=== PATIENT | female | born 1990 | race Caucasian/White ===

== ENCOUNTER 2016-06-20 20:10 | Emergency (ER) | payer MEDICAID ==
[~2016-06-20] VITALS: Ht 142.2 cm; Wt 68.0 kg
[~2016-06-20 20:10] MED LIST: BECL80AE9 HHN; FLUO-125 PO; LORA1TAB12 PO
[2016-06-20 20:59] VITALS: BP 139/76
[2016-06-20 21:17] LABS: Basophils # (auto) 0.1 uL; Basophils % (auto) 0.5 % (0.0-2.0); DEFINITIVE VIEW TRANSMISSION; Eosinophils # (auto) 0.7 uL; Eosinophils % (auto) 5.8 % (0.0-7.0); Hemoglobin 13.5 g/dL (12.2-16.2); Lymphocytes # (auto) 3.4 uL; Lymphocytes % (auto) 26.5 % (10.0-50.0); Mean Corpuscular Hemoglobin 29.8 pg (28.0-32.0); Mean Corpuscular Volume 90.4 fL (80.0-100.0); Mean Platelet Volume 7.7 fL (7.4-10.4); Monocytes # (auto) 0.5 uL; Monocytes % (auto) 3.8 % (0.0-12.0); Neutrophils # (auto) 8.2 uL; Neutrophils % (auto) 63.4 % (37.0-80.0); Platelet Count (auto) 452 10^3/uL (140-450); Red Cell Distribution Width 12.3 % (11.6-16.0); White Blood Cell 12.9 10^3/uL (4.4-10.8)
[2016-06-20 21:34] LABS: Albumin 3.6 g/dL (3.4-5.0); BUN/Creatinine Ratio 12.8; Calcium 8.5 mg/dL (8.5-10.1); Potassium 3.4 mmol/L (3.5-5.1)
[2016-06-20 21:36] LABS: B-Type Natriuretic Peptide 12.44 pg/mL (0-100)
[2016-06-20 21:37] LABS: INR 1.03 (0.9-1.15); Partial Thromboplastin Time 25.7 sec (22.64-33.71); Prothrombin Time 10.6 sec (9.37-12.3)
[2016-06-20 21:44] LABS: Bilirubin, Total 0.3 mg/dL (0.2-1.0); Total Protein 7.3 g/dL (6.4-8.2)
[2016-06-20] MEDS ORDERED: methylPREDNISolone SOD SUCC 125 MG/2 ML VL IV ONE (21:45)
== END 2016-06-20 22:16 | disposition home or self-care (01) ==
LOC: EDBD 20:10 → ER 20:37
DX: J45.901 Unspecified asthma with (acute) exacerbation (principal)
CPT/HCPCS: 36415; 71010; 80053; 83880; 84484; 85025; 85610; 85730; 93005; 96374; 99285; J2930

== ENCOUNTER 2016-07-08 07:51 | Emergency (ER) | payer MEDICAID ==
[~2016-07-08] VITALS: Ht 142.2 cm; Wt 68.0 kg
[2016-07-08 09:15] LABS: Basophils # (auto) 0 uL; Basophils % (auto) 0.1 % (0.0-2.0); Eosinophils # (auto) 0.1 uL; Eosinophils % (auto) 0.6 % (0.0-7.0); Hematocrit 41.1 % (36.0-46.0); Hemoglobin 13.6 g/dL (12.2-16.2); Lymphocytes # (auto) 1.7 uL; Lymphocytes % (auto) 18.6 % (10.0-50.0); Mean Corpuscular Volume 90.7 fL (80.0-100.0); Mean Platelet Volume 7.5 fL (7.4-10.4); Monocytes # (auto) 0.8 uL; Monocytes % (auto) 8.9 % (0.0-12.0); Neutrophils # (auto) 6.4 uL; Neutrophils % (auto) 71.8 % (37.0-80.0); Platelet Count (auto) 411 10^3/uL (140-450); Red Cell Distribution Width 12.6 % (11.6-16.0); White Blood Cell 8.9 10^3/uL (4.4-10.8)
[2016-07-08 09:21] LABS: Albumin 3.7 g/dL (3.4-5.0); BUN/Creatinine Ratio 17.4; Bilirubin, Total 0.4 mg/dL (0.2-1.0); Calcium 8.9 mg/dL (8.5-10.1); Magnesium 2.4 mg/dL (1.6-2.6); Potassium 3.4 mmol/L (3.5-5.1); Total Protein 7.5 g/dL (6.4-8.2)
[2016-07-08] MEDS ORDERED: ATOR10TA PO (09:53)
[2016-07-08] MEDS ORDERED: TIOTCAP INH (09:53)
[2016-07-08] MEDS ORDERED: TRAM50TA2 PO (09:53)
[2016-07-08] MEDS ORDERED: ALB2T PO (09:53)
[2016-07-08] MEDS ORDERED: MET25T PO (09:53)
[2016-07-08] MEDS ORDERED: AML5T PO (09:53)
[2016-07-08] MEDS ORDERED: HYDR-2650 PO (09:53)
[2016-07-08] MEDS ORDERED: TAM04C PO (09:53)
[2016-07-08] MEDS ORDERED: FURO20TA PO (09:53)
[2016-07-08] MEDS ORDERED: SODIUM CHLORIDE 0.9% 1,000 ML IV ONE (11:00)
[2016-07-08] MEDS ORDERED: methylPREDNISolone SOD SUCC 125 MG/2 ML VL IV ONE (11:00)
[2016-07-08] MEDS ORDERED: IPRATROPIUM BROM 0.5 MG/2.5ML INH SOL NEB ONE (11:00)
[2016-07-08] MEDS ORDERED: ALBUTEROL SULF 2.5 MG/0.5ML(0.5%) NEB SOLN NEB ONE (11:00)
[2016-07-08] MEDS ORDERED: LORazepam 2MG/ML-1ML VIAL IV ONE (11:45)
[2016-07-08] MEDS ORDERED: POTASSIUM CHL 20 Meq TABLET PO ONE (13:30)
[2016-07-08 13:58] VITALS: BP 121/76
[2016-07-09] MEDS ORDERED: FLU220IH INH (00:11)
[2016-07-09] MEDS ORDERED: ARIP2TAB PO (00:11)
[2016-07-09] MEDS ORDERED: ALPR1TAB2 PO (00:11)
[2016-07-09] MEDS ORDERED: TRAZ50TA2 PO (00:11)
== END 2016-07-08 14:47 | disposition home or self-care (01) ==
LOC: EDBD 07:51 → ER 08:03
DX: J45.901 Unspecified asthma with (acute) exacerbation (principal); E87.6 Hypokalemia; R73.9 Hyperglycemia, unspecified; E87.8 Other disorders of electrolyte and fluid balance, not elsewhere classified; F17.210 Nicotine dependence, cigarettes, uncomplicated; Z90.49 Acquired absence of other specified parts of digestive tract
CPT/HCPCS: 36415; 80053; 83735; 84484; 84702; 85025; 94640; 96361; 96374; 96375; 99284; J2060; J2930; J7030

== ENCOUNTER 2016-07-08 16:41 | Inpatient (IN) | payer MEDICAID ==
[~2016-07-08] VITALS: Ht 142.2 cm; Wt 73.6 kg
[~2016-07-08 16:41] MED LIST changes: +ALB2T PO; +AML5T PO; +ATOR10TA PO; +FURO20TA PO; +HYDR-2650 PO; +MET25T PO; +TAM04C PO; +TIOTCAP INH; +TRAM50TA2 PO
[2016-07-08] MEDS ORDERED: IPRATROPIUM BROM 0.5 MG/2.5ML INH SOL ONE (16:49)
[2016-07-08] MEDS ORDERED: ALBUTEROL SULF 2.5 MG/0.5ML(0.5%) NEB SOLN ONE (16:49)
[2016-07-08] MEDS ORDERED: SODIUM CHLORIDE 0.9% 1,000 ML IV ONE (17:00)
[2016-07-08] MEDS ORDERED: TERBUTALINE SULFATE 1 MG/ML 1ML VIAL SC ONE (17:00)
[2016-07-08] MEDS: MAGNESIUM SULFATE 1GM/100ML 100 ML IV SCH ×2 (17:25→18:07)
[2016-07-08] MEDS ORDERED: SODIUM CHLORIDE 0.9% 1,000 ML IV SCH (18:44)
[2016-07-08] MEDS ORDERED: ACETAMINOPHEN 500 MG TAB PO PRN (18:45)
[2016-07-08] MEDS ORDERED: PROMETHAZINE HCL 25 MG/ML 1ML IV PRN (18:45)
[2016-07-08] MEDS ORDERED: LORazepam 0.5 MG TAB PO PRN ×2 (18:45→21:00)
[2016-07-08] MEDS ORDERED: MORPHINE SULF INJ 2 MG/ML SYRINGE 1ML IV PRN ×2 (18:45)
[2016-07-08] MEDS ORDERED: LACTULOSE 20Gm/30ML SOLN PO PRN (18:45)
[2016-07-08] MEDS ORDERED: NITROGLYCERIN 0.4 MG SL TAB SL PRN (18:45)
[2016-07-08] MEDS ORDERED: OSELTAMIVIR 75 MG CAP PO ONE (18:45)
[2016-07-08] MEDS: DOXYCYCLINE HYC 100MG/250ML 250 ML IV SCH (18:45)
[2016-07-08] MEDS ORDERED: ALBUTEROL SULF 2.5 MG/0.5ML(0.5%) NEB SOLN NEB PRN (18:45)
[2016-07-08] MEDS: ENOXAPARIN SOD 40 MG/0.4 ML SYRINGE SC SCH (18:59)
[2016-07-08] MEDS ORDERED: methylPREDNISolone SOD SUCC 125 MG/2 ML VL IV ONE (19:00)
[2016-07-08] MEDS ORDERED: IOHEXOL 350 MG/ML 100ML IJ ONE (19:40)
[2016-07-08] MEDS: HYDROcodone-ACET 5/325MG TAB PO PRN (20:38)
[2016-07-08] MEDS: TEMAZEPAM 15 MG CAP PO PRN (20:39)
[2016-07-08] MEDS: BUDESONIDE (INHALATION) 0.5 MG/2 ML NEB NEB SCH (22:00)
[2016-07-08 22:03] VITALS: BP 106/48
[2016-07-08] MEDS: methylPREDNISolone SOD SUCC 40 MG/ML VL IV SCH (23:25)
[2016-07-09] VITALS (7 sets, daily range): BP systolic 96–128; BP diastolic 48–93
[2016-07-09] MEDS ORDERED: FLU220IH INH (00:11)
[2016-07-09] MEDS ORDERED: ALPR1TAB2 PO (00:11)
[2016-07-09] MEDS ORDERED: TRAZ50TA2 PO (00:11)
[2016-07-09] MEDS ORDERED: ARIP2TAB PO (00:11)
[2016-07-09] MEDS: BUDESONIDE (INHALATION) 0.5 MG/2 ML NEB NEB SCH ×2 (00:20→07:01)
[2016-07-09] MEDS: ALBUTEROL SULF 2.5 MG/0.5ML(0.5%) NEB SOLN NEB SCH ×4 (00:45→18:28)
[2016-07-09] MEDS: IPRATROPIUM BROM 0.5 MG/2.5ML INH SOL NEB SCH ×4 (00:45→18:27)
[2016-07-09] MEDS: DOXYCYCLINE HYC 100MG/250ML 250 ML IV SCH ×2 (05:52→18:19)
[2016-07-09] MEDS: HYDROcodone-ACET 5/325MG TAB PO PRN ×2 (05:52→14:50)
[2016-07-09] MEDS: methylPREDNISolone SOD SUCC 40 MG/ML VL IV SCH ×3 (05:52→18:18)
[2016-07-09] MEDS ORDERED: OSELTAMIVIR 75 MG CAP PO SCH (10:00)
[2016-07-09] MEDS: SODIUM CHLORIDE 0.9% 1,000 ML IV SCH ×2 (10:11→18:08)
[2016-07-09] MEDS: ENOXAPARIN SOD 40 MG/0.4 ML SYRINGE SC SCH (18:18)
[2016-07-09] MEDS: TEMAZEPAM 15 MG CAP PO PRN (21:39)
[2016-07-10] MEDS: methylPREDNISolone SOD SUCC 40 MG/ML VL IV SCH ×3 (00:07→12:16)
[2016-07-10] MEDS: ALBUTEROL SULF 2.5 MG/0.5ML(0.5%) NEB SOLN NEB SCH ×3 (00:20→12:50)
[2016-07-10] MEDS: IPRATROPIUM BROM 0.5 MG/2.5ML INH SOL NEB SCH ×3 (00:20→12:49)
[2016-07-10] MEDS: SODIUM CHLORIDE 0.9% 1,000 ML IV SCH ×2 (00:54→09:51)
[2016-07-10 05:00] VITALS: BP 108/53
[2016-07-10] MEDS: DOXYCYCLINE HYC 100MG/250ML 250 ML IV SCH (06:27)
[2016-07-10] MEDS: BUDESONIDE (INHALATION) 0.5 MG/2 ML NEB NEB SCH (06:58)
[2016-07-10 09:00] VITALS: BP 109/56
[2016-07-10] MEDS: HYDROcodone-ACET 5/325MG TAB PO PRN (09:08)
[2016-07-10 12:54] VITALS: BP 108/55
[2016-07-10 17:00] VITALS: BP 111/70
== END 2016-07-10 18:52 | disposition home or self-care (01) | DRG 133 ==
LOC: EDBD 16:41 → ER 16:44 → TELE 16:45 → TELE-CENTR 22:07
PROVIDERS: ADMIT Internal Medicine; ATTEND Internal Medicine
PROC: 5A09357 Assistance with Respiratory Ventilation, Less than 24 Consecutive Hours, Continuous Positive Airway Pressure (ICD-10-PCS; principal; 2016-07-08)
DX: J96.00 Acute respiratory failure, unspecified whether with hypoxia or hypercapnia (principal); J45.901 Unspecified asthma with (acute) exacerbation; E66.9 Obesity, unspecified; F17.210 Nicotine dependence, cigarettes, uncomplicated; Z83.3 Family history of diabetes mellitus; F41.9 Anxiety disorder, unspecified; Z68.36 Body mass index [BMI] 36.0-36.9, adult; Z90.49 Acquired absence of other specified parts of digestive tract; Z88.1 Allergy status to other antibiotic agents; Z88.8 Allergy status to other drugs, medicaments and biological substances
CPT/HCPCS: 36415; 36600; 71010; 71275; 81025; 82805; 82962; 85379; 87400; 93970; 94640; 94660; 96361; 96365; 96372; 96375; G0434; J3490

== ENCOUNTER 2016-11-21 17:51 | Emergency (ER) | payer MEDICAID ==
[~2016-11-21] VITALS: Ht 144.8 cm; Wt 77.1 kg
[~2016-11-21 17:51] MED LIST changes: +ALPR1TAB2 PO; -AML5T PO; +ARIP2TAB PO; -ATOR10TA PO; -BECL80AE9 HHN; +FLU220IH INH; -FLUO-125 PO; -FURO20TA PO; -HYDR-2650 PO; -MET25T PO; -TAM04C PO; -TIOTCAP INH; -TRAM50TA2 PO; +TRAZ50TA2 PO
[2016-11-21 18:12] VITALS: BP 122/70
[2016-11-21] MEDS ORDERED: methylPREDNISolone SOD SUCC 125 MG/2 ML VL IV ONE (18:45)
[2016-11-21] MEDS ORDERED: IPRATROPIUM BROM 0.5 MG/2.5ML INH SOL HHN ONE (18:45)
[2016-11-21] MEDS ORDERED: ALBUTEROL SULF 2.5 MG/0.5ML(0.5%) NEB SOLN HHN ONE (18:45)
[2016-11-21 19:20] LABS: Basophils # (auto) 0 uL; DEFINITIVE VIEW TRANSMISSION; Eosinophils # (auto) 0.8 uL; Eosinophils % (auto) 7.8 % (0.0-7.0); Hematocrit 38.8 % (36.0-46.0); Lymphocytes # (auto) 2.2 uL; Lymphocytes % (auto) 22.7 % (10.0-50.0); Mean Corpuscular Hgb Conc. 33.4 g/dL (32.0-36.0); Mean Corpuscular Volume 92.7 fL (80.0-100.0); Mean Platelet Volume 7.2 fL (7.4-10.4); Monocytes # (auto) 0.6 uL; Monocytes % (auto) 6.5 % (0.0-12.0); Neutrophils # (auto) 6.1 uL; Platelet Count (auto) 430 10^3/uL (140-450); White Blood Cell 9.7 10^3/uL (4.4-10.8)
[2016-11-21 19:43] LABS: Albumin 3.3 g/dL (3.4-5.0); BUN/Creatinine Ratio 15.4; Bilirubin, Total 0.3 mg/dL (0.2-1.0); Calcium 8.7 mg/dL (8.5-10.1); Potassium 4.2 mmol/L (3.5-5.1); Total Protein 6.6 g/dL (6.4-8.2)
== END 2016-11-21 20:04 | disposition home or self-care (01) ==
LOC: EDBD 17:51 → ER 17:51
DX: J45.901 Unspecified asthma with (acute) exacerbation (principal); J40 Bronchitis, not specified as acute or chronic; F17.210 Nicotine dependence, cigarettes, uncomplicated; Z90.49 Acquired absence of other specified parts of digestive tract; F12.10 Cannabis abuse, uncomplicated
CPT/HCPCS: 36415; 80053; 85025; 93005; 94644; 94761; 96374; 99285; J2930

== ENCOUNTER 2017-05-31 17:42 | Emergency (ER) | payer MEDICAID ==
[~2017-05-31] VITALS: Ht 144.8 cm; Wt 72.6 kg
[~2017-05-31 17:42] MED LIST changes: -ALB2T PO; -ALPR1TAB2 PO; +ALPR2TAB2 PO; +ARIP1TAB7 PO; -ARIP2TAB PO; +AZITTAB PO; +DEXT1SYP9 PO; +ESCI20TA PO; -LORA1TAB12 PO; +MONT4CHW9 PO; +PRE5T PO
[2017-05-31 18:45] LABS: Basophils # (auto) 0 uL; Basophils % (auto) 0.3 % (0.0-2.0); Eosinophils # (auto) 0.4 uL; Eosinophils % (auto) 3.6 % (0.0-7.0); Hematocrit 41.7 % (36.0-46.0); Hemoglobin 14.1 g/dL (12.2-16.2); Lymphocytes # (auto) 1.2 uL; Mean Corpuscular Hemoglobin 31.6 pg (28.0-32.0); Mean Corpuscular Hgb Conc. 33.8 g/dL (32.0-36.0); Mean Corpuscular Volume 93.4 fL (80.0-100.0); Mean Platelet Volume 7.3 fL (6.9-10.8); Monocytes # (auto) 0.5 uL; Monocytes % (auto) 4.1 % (0.0-12.0); Neutrophils # (auto) 9.7 uL; Platelet Count (auto) 367 10^3/uL (140-450); Red Cell Distribution Width 12.4 % (11.8-14.3); White Blood Cell 11.8 10^3/uL (4.4-10.8)
[2017-05-31 19:02] LABS: Albumin 3.9 g/dL (3.4-5.0); BUN/Creatinine Ratio 9.4; Calcium 9.1 mg/dL (8.5-10.1); Potassium 3.5 mmol/L (3.5-5.1); Total Protein 7.9 g/dL (6.4-8.2)
[2017-05-31] MEDS ORDERED: methylPREDNISolone SOD SUCC 125 MG/2 ML VL IV ONE (19:30)
[2017-05-31] MEDS ORDERED: SODIUM CHLORIDE 0.9% 1,000 ML IV ONE (19:30)
[2017-06-01 02:48] VITALS: BP 110/69
[2017-06-01] MEDS ORDERED: IPRATROPIUM BROM 0.5 MG/2.5ML INH SOL NEB ONE (03:15)
[2017-06-01] MEDS ORDERED: ALBUTEROL SULF 2.5 MG/0.5ML(0.5%) NEB SOLN NEB ONE (03:15)
== END 2017-06-01 03:32 | disposition home or self-care (01) ==
LOC: EDBD 17:42 → ER 17:52
DX: J45.901 Unspecified asthma with (acute) exacerbation (principal); F17.210 Nicotine dependence, cigarettes, uncomplicated; Z90.49 Acquired absence of other specified parts of digestive tract
CPT/HCPCS: 36415; 71020; 80053; 85025; 94640; 96361; 96374; 99285; J2930

== ENCOUNTER 2017-11-26 20:41 | Emergency (ER) | payer MEDICAID ==
[~2017-11-26] VITALS: Ht 152.4 cm; Wt 72.6 kg
[2017-11-26 22:12] VITALS: BP 125/89
[2017-11-26 22:32] LABS: Basophils # (auto) 0.1 uL; Basophils % (auto) 0.6 % (0.0-2.0); Eosinophils # (auto) 0.3 uL; Eosinophils % (auto) 3.3 % (0.0-7.0); Hematocrit 40.6 % (36.0-46.0); Hemoglobin 13.7 g/dL (12.2-16.2); Lymphocytes # (auto) 1.4 uL; Lymphocytes % (auto) 14.3 % (10.0-50.0); Mean Corpuscular Hemoglobin 31.5 pg (28.0-32.0); Mean Corpuscular Hgb Conc. 33.8 g/dL (32.0-36.0); Mean Corpuscular Volume 93.3 fL (80.0-100.0); Monocytes # (auto) 0.2 uL; Monocytes % (auto) 2.5 % (0.0-12.0); Neutrophils # (auto) 7.6 uL; Neutrophils % (auto) 79.3 % (37.0-80.0); Nucleated Red Blood Cells % 0.1 %; Platelet Count (auto) 377 10^3/uL (140-450); Red Blood Cells 4.35 10^6/uL (4.0-5.20); Red Cell Distribution Width 13.2 % (11.8-14.3); White Blood Cell 9.6 10^3/uL (4.4-10.8)
[2017-11-26 22:47] LABS: Albumin 3.8 g/dL (3.4-5.0); BUN/Creatinine Ratio 13.5; Calcium 8.7 mg/dL (8.5-10.1); Potassium 3.9 mmol/L (3.5-5.1)
[2017-11-26 22:50] LABS: Bilirubin, Total 0.3 mg/dL (0.2-1.0); Total Protein 7.2 g/dL (6.4-8.2)
== END 2017-11-26 22:40 | disposition left against medical advice (07) ==
LOC: ER 20:41 → EDBD 20:41 → ER 22:40
DX: R06.02 Shortness of breath (principal); Z53.21 Procedure and treatment not carried out due to patient leaving prior to being seen by health care provider
CPT/HCPCS: 36415; 71045; 80053; 85025

== ENCOUNTER 2018-09-23 16:09 | Emergency (ER) | payer MEDICAID ==
[~2018-09-23] VITALS: Ht 144.8 cm; Wt 63.5 kg
[2018-09-23 16:21] VITALS: BP 110/59
== END 2018-09-23 21:25 | disposition left against medical advice (07) ==
LOC: ER 16:10
DX: O26.891 Other specified pregnancy related conditions, first trimester (principal); R10.30 Lower abdominal pain, unspecified; Z3A.01 Less than 8 weeks gestation of pregnancy; Z53.21 Procedure and treatment not carried out due to patient leaving prior to being seen by health care provider
CPT/HCPCS: 36415; 76801; 84702

== ENCOUNTER 2018-10-28 19:29 | Emergency (ER) | payer MEDICAID ==
[~2018-10-28] VITALS: Ht 144.8 cm; Wt 62.6 kg
[~2018-10-28 19:29] MED LIST changes: +ALBUAER3 IN; +FOLI1TAB6 PO; +IPR002IS NEB; +PREN-96 PO
[2018-10-28 19:36] VITALS: BP 120/70
[2018-10-29] MEDS ORDERED: methylPREDNISolone SOD SUCC 125 MG/2 ML VL ONE (11:12)
[2018-10-29] MEDS ORDERED: ALBUTEROL SULF 2.5 MG/0.5ML(0.5%) NEB SOLN ONE (11:22)
== END 2018-10-28 20:15 | disposition left against medical advice (07) ==
LOC: ER 19:29
DX: O26.891 Other specified pregnancy related conditions, first trimester (principal); F41.9 Anxiety disorder, unspecified; Z3A.12 12 weeks gestation of pregnancy

== ENCOUNTER 2018-10-29 10:48 | Emergency (ER) | payer MEDICAID ==
[~2018-10-29] VITALS: Ht 144.8 cm; Wt 62.6 kg
[~2018-10-29 10:48] MED LIST changes: -ALPR2TAB2 PO; -ARIP1TAB7 PO; -AZITTAB PO; -DEXT1SYP9 PO; -ESCI20TA PO; -FLU220IH INH; -PRE5T PO; -TRAZ50TA2 PO
[2018-10-29] MEDS ORDERED: methylPREDNISolone SOD SUCC 125 MG/2 ML VL IV ONE (11:15)
[2018-10-29] MEDS ORDERED: ALBUTEROL SULF 2.5 MG/0.5ML(0.5%) NEB SOLN NEB ONE ×2 (11:15→14:15)
[2018-10-29 11:42] LABS: Basophils # (auto) 0 uL; Basophils % (auto) 0.2 % (0.0-2.0); Eosinophils # (auto) 0.7 uL; Eosinophils % (auto) 5.8 % (0.0-7.0); Hematocrit 38.5 % (36.0-46.0); Hemoglobin 13.3 g/dL (12.2-16.2); Lymphocytes # (auto) 3.5 uL; Lymphocytes % (auto) 27.7 % (10.0-50.0); Mean Corpuscular Hemoglobin 31.8 pg (28.0-32.0); Mean Corpuscular Hgb Conc. 34.6 g/dL (32.0-36.0); Mean Corpuscular Volume 92.1 fL (80.0-100.0); Monocytes # (auto) 0.4 uL; Monocytes % (auto) 3.4 % (0.0-12.0); Neutrophils % (auto) 62.9 % (37.0-80.0); Platelet Count (auto) 361 10^3/uL (140-450); Red Blood Cells 4.18 10^6/uL (4.0-5.20); White Blood Cell 12.7 10^3/uL (4.4-10.8)
[2018-10-29 11:48] LABS: Calcium 8.3 mg/dL (8.5-10.1); Potassium 3.7 mmol/L (3.5-5.1)
[2018-10-29 11:55] LABS: BUN/Creatinine Ratio 14.6; Bilirubin, Total 0.4 mg/dL (0.2-1.0); Total Protein 7.1 g/dL (6.4-8.2)
[2018-10-29 13:38] VITALS: BP 120/77
[2018-10-29] MEDS ORDERED: IPRATROPIUM BROM 0.5 MG/2.5ML INH SOL NEB ONE (14:15)
== END 2018-10-29 14:57 | disposition home or self-care (01) ==
LOC: EDBD 10:48 → ER 10:48
DX: O99.511 Diseases of the respiratory system complicating pregnancy, first trimester (principal); J45.901 Unspecified asthma with (acute) exacerbation; Z3A.12 12 weeks gestation of pregnancy
CPT/HCPCS: 36415; 80053; 85025; 94640; 94761; 96374; 99284; J2930; J7611; J7644

== ENCOUNTER 2019-04-29 21:30 | Emergency (ER) | payer MEDICAID ==
[~2019-04-29] VITALS: Ht 154.9 cm; Wt 63.5 kg
[2019-04-29] MEDS ORDERED: ALBUTEROL SULF 2.5 MG/0.5ML(0.5%) NEB SOLN HHN STA (22:02)
[2019-04-29] MEDS: MAGNESIUM SULFATE 1GM/100ML 100 ML IV SCH ×3 (22:05→23:05)
[2019-04-29] MEDS ORDERED: ALBUTEROL SULF 2.5 MG/0.5ML(0.5%) NEB SOLN NEB ONE (22:15)
[2019-04-29] MEDS ORDERED: IPRATROPIUM BROM 0.5 MG/2.5ML INH SOL NEB ONE ×2 (22:15)
[2019-04-29 22:22] LABS: Basophils # (auto) 0 uL; Eosinophils # (auto) 0.7 uL; Monocytes # (auto) 0.6 uL
[2019-04-29 22:25] LABS: Basophils % (auto) 0.3 % (0.0-2.0); Hematocrit 35.2 % (36.0-46.0); Hemoglobin 11.5 g/dL (12.2-16.2); Lymphocytes # (auto) 2.4 uL; Lymphocytes % (auto) 23.5 % (10.0-50.0); Mean Corpuscular Hemoglobin 30.6 pg (28.0-32.0); Mean Corpuscular Hgb Conc. 32.6 g/dL (32.0-36.0); Mean Corpuscular Volume 93.7 fL (80.0-100.0); Monocytes % (auto) 6.2 % (0.0-12.0); Neutrophils # (auto) 6.4 uL; Platelet Count (auto) 550 10^3/uL (140-450); Red Blood Cells 3.76 10^6/uL (4.0-5.20); Red Cell Distribution Width 13.2 % (11.8-14.3); White Blood Cell 10.2 10^3/uL (4.4-10.8)
[2019-04-29 22:39] LABS: Albumin 2.6 g/dL (3.4-5.0); Calcium 9.3 mg/dL (8.5-10.1); Potassium 4.2 mmol/L (3.5-5.1)
[2019-04-29 22:44] LABS: BUN/Creatinine Ratio 38.2; Bilirubin, Total 0.3 mg/dL (0.2-1.0)
[2019-04-30] VITALS: BP 147/60
[2019-04-30] MEDS ORDERED: methylPREDNISolone SOD SUCC 125 MG/2 ML VL IV ONE (07:30)
== END 2019-04-30 01:22 | disposition home or self-care (01) ==
LOC: EDBD 21:30 → ER 21:33
DX: J45.901 Unspecified asthma with (acute) exacerbation (principal); Z90.49 Acquired absence of other specified parts of digestive tract
CPT/HCPCS: 36415; 36600; 71045; 80053; 82805; 85025; 85610; 85730; 94644; 96365; 96366; 96375

== ENCOUNTER 2020-04-12 16:10 | Emergency (ER) | payer MEDICAID ==
[~2020-04-12] VITALS: Ht 144.8 cm; Wt 73.5 kg
[2020-04-12] MEDS ORDERED: SODIUM CHLORIDE 0.9% 500 ML IV ONE (16:30)
[2020-04-12] MEDS ORDERED: methylPREDNISolone SOD SUCC 125 MG/2 ML VL IV ONE (16:30)
[2020-04-12] MEDS ORDERED: SODIUM CHLORIDE 0.9% 1,000 ML IV ONE (16:30)
[2020-04-12] MEDS ORDERED: ALBUTEROL SULF 2.5 MG/0.5ML(0.5%) NEB SOLN NEB ONE (16:30)
[2020-04-12] MEDS ORDERED: IPRATROPIUM BROM 0.5 MG/2.5ML INH SOL NEB ONE (16:30)
[2020-04-12 16:53] LABS: Basophils # (auto) 0 10 ^3/uL (0-0.2); Basophils % (auto) 0.4 % (0.0-2.0); Eosinophils # (auto) 0.4 10 ^3/uL (0-0.8); Eosinophils % (auto) 4.4 % (0.0-7.0); Hematocrit 38.9 % (36.0-46.0); Lymphocytes % (auto) 37.1 % (10.0-50.0); Mean Corpuscular Hemoglobin 30.1 pg (28.0-32.0); Mean Corpuscular Hgb Conc. 33.5 g/dL (32.0-36.0); Mean Corpuscular Volume 89.8 fL (80.0-100.0); Monocytes # (auto) 0.4 10 ^3/uL (0-1.3); Monocytes % (auto) 5.5 % (0.0-12.0); Neutrophils # (auto) 4.2 10 ^3/uL (1.6-8.6); Neutrophils % (auto) 52.6 % (37.0-80.0); Platelet Count (auto) 365 10^3/uL (140-450); Red Blood Cells 4.33 10^6/uL (4.0-5.20); Red Cell Distribution Width 12.6 % (11.8-14.3)
[2020-04-12 17:18] LABS: BUN/Creatinine Ratio 12.6; Calcium 8.9 mg/dL (8.5-10.1); Magnesium 2.4 mg/dL (1.6-2.6); Potassium 3.6 mmol/L (3.5-5.1)
[2020-04-12 17:49] VITALS: BP 148/71
== END 2020-04-12 17:59 | disposition home or self-care (01) ==
LOC: EDBD 16:10 → ER 16:18
DX: J45.41 Moderate persistent asthma with (acute) exacerbation (principal)
CPT/HCPCS: 36415; 71046; 80048; 83735; 85025; 93005; 94640; 96361; 96374; 99285; J2930; J7644

== ENCOUNTER 2020-08-25 09:39 | Emergency (ER) | payer MEDICAID ==
[~2020-08-25] VITALS: Ht 152.4 cm; Wt 72.6 kg
[2020-08-25] MEDS ORDERED: ALBUTEROL SULF 2.5 MG/0.5ML(0.5%) NEB SOLN NEB ONE (10:00)
[2020-08-25 10:11] LABS: Basophils # (auto) 0 10 ^3/uL (0-0.2); Basophils % (auto) 0.4 % (0.0-2.0); Eosinophils # (auto) 0.3 10 ^3/uL (0-0.8); Eosinophils % (auto) 2.2 % (0.0-7.0); Hematocrit 41.9 % (36.0-46.0); Hemoglobin 14.1 g/dL (12.2-16.2); Lymphocytes # (auto) 2.1 10 ^3/uL (0.4-5.4); Lymphocytes % (auto) 17.3 % (10.0-50.0); Mean Corpuscular Hemoglobin 30.5 pg (28.0-32.0); Mean Corpuscular Hgb Conc. 33.6 g/dL (32.0-36.0); Mean Corpuscular Volume 90.8 fL (80.0-100.0); Monocytes # (auto) 0.5 10 ^3/uL (0-1.3); Monocytes % (auto) 3.9 % (0.0-12.0); Neutrophils # (auto) 9.2 10 ^3/uL (1.6-8.6); Neutrophils % (auto) 76.2 % (37.0-80.0); Red Blood Cells 4.62 10^6/uL (4.0-5.20); Red Cell Distribution Width 12.8 % (11.8-14.3); White Blood Cell 12.1 10^3/uL (4.4-10.8)
[2020-08-25 10:25] LABS: Albumin 3.8 g/dL (3.4-5.0); BUN/Creatinine Ratio 23.4; Calcium 8.2 mg/dL (8.5-10.1); Potassium 4.1 mmol/L (3.5-5.1)
[2020-08-25 10:29] LABS: Bilirubin, Total 0.4 mg/dL (0.2-1.0); Total Protein 7.5 g/dL (6.4-8.2)
[2020-08-25] MEDS ORDERED: HYDROcodone-ACET 10/325MG TAB ONE (11:33)
[2020-08-25] MEDS ORDERED: HYDROcodone-ACET 10/325MG TAB PO ONE (11:45)
[2020-08-25 12:06] LABS: Urine Bacteria FEW /hpf (None Seen); Urine Blood Negative /uL (Negative); Urine Specific Gravity 1.018 (1.001-1.035); Urine WBC <1 /hpf (0 - 5)
[2020-08-25 12:35] VITALS: BP 136/59
== END 2020-08-25 13:20 | disposition home or self-care (01) ==
LOC: ER 09:39 → EDBD 09:39 → ER 13:20
DX: J45.41 Moderate persistent asthma with (acute) exacerbation (principal); F41.9 Anxiety disorder, unspecified; Z90.49 Acquired absence of other specified parts of digestive tract; Z98.890 Other specified postprocedural states
CPT/HCPCS: 36415; 71045; 80053; 81001; 85025; 94644

== ENCOUNTER 2020-10-19 08:55 | Emergency (ER) | payer MEDICAID ==
[~2020-10-19] VITALS: Ht 154.9 cm; Wt 81.6 kg
[2020-10-19] MEDS ORDERED: methylPREDNISolone SOD SUCC 125 MG/2 ML VL IV ONE (09:15)
[2020-10-19 09:35] LABS: Basophils # (auto) 0 10 ^3/uL (0-0.2); Basophils % (auto) 0.3 % (0.0-2.0); Eosinophils # (auto) 0.5 10 ^3/uL (0-0.8); Eosinophils % (auto) 4.5 % (0.0-7.0); Hematocrit 43.5 % (36.0-46.0); Hemoglobin 14.5 g/dL (12.2-16.2); Lymphocytes # (auto) 3.1 10 ^3/uL (0.4-5.4); Lymphocytes % (auto) 27.5 % (10.0-50.0); Mean Corpuscular Hemoglobin 30.4 pg (28.0-32.0); Mean Corpuscular Hgb Conc. 33.4 g/dL (32.0-36.0); Mean Corpuscular Volume 91.3 fL (80.0-100.0); Monocytes # (auto) 0.6 10 ^3/uL (0-1.3); Monocytes % (auto) 5.2 % (0.0-12.0); Neutrophils % (auto) 62.5 % (37.0-80.0); Nucleated Red Blood Cells % 0.1 %; Red Blood Cells 4.76 10^6/uL (4.0-5.20); White Blood Cell 11.2 10^3/uL (4.4-10.8)
[2020-10-19 09:51] LABS: Albumin 3.8 g/dL (3.4-5.0); Calcium 8.9 mg/dL (8.5-10.1); Potassium 3.7 mmol/L (3.5-5.1)
[2020-10-19 09:55] LABS: BUN/Creatinine Ratio 14.5; Bilirubin, Total 0.9 mg/dL (0.2-1.0); Total Protein 7.4 g/dL (6.4-8.2)
[2020-10-19 11:26] LABS: Urine Bacteria FEW /hpf (None Seen); Urine Blood Negative /uL (Negative); Urine Mucus FEW (None Seen); Urine Specific Gravity 1.023 (1.001-1.035); Urine WBC 18 /hpf (0 - 5)
[2020-10-19 12:00] VITALS: BP 124/68
[2020-10-19] MEDS ORDERED: CEPHALEXIN 250 MG/5ml ORAL Susp 200ML BTL PO ONE (12:00)
== END 2020-10-19 17:59 | disposition home or self-care (01) ==
LOC: ER 08:55 → EDBD 08:55 → ER 17:59
DX: O99.511 Diseases of the respiratory system complicating pregnancy, first trimester (principal); J45.901 Unspecified asthma with (acute) exacerbation; R06.03 Acute respiratory distress; F41.9 Anxiety disorder, unspecified; Z90.49 Acquired absence of other specified parts of digestive tract; Z98.890 Other specified postprocedural states; Z3A.01 Less than 8 weeks gestation of pregnancy
CPT/HCPCS: 36415; 80053; 81001; 85025; 96374; 99283; J2930

== ENCOUNTER 2020-10-25 19:35 | Emergency (ER) | payer MEDICAID ==
[~2020-10-25] VITALS: Ht 149.9 cm; Wt 72.6 kg
[2020-10-25] MEDS ORDERED: IPRATROPIUM BROM 0.5 MG/2.5ML INH SOL NEB ONE (20:00)
[2020-10-25] MEDS ORDERED: ALBUTEROL SULF 2.5 MG/0.5ML(0.5%) NEB SOLN NEB ONE (20:00)
[2020-10-25] MEDS ORDERED: methylPREDNISolone SOD SUCC 125 MG/2 ML VL IV ONE ×2 (20:15→20:45)
[2020-10-25] MEDS ORDERED: ALBUTEROL SULF 2.5 MG/0.5ML(0.5%) NEB SOLN HHN ONE (20:45)
[2020-10-25] MEDS ORDERED: IPRATROPIUM BROM 0.5 MG/2.5ML INH SOL HHN ONE (20:45)
[2020-10-25 20:46] LABS: Basophils # (auto) 0 10 ^3/uL (0-0.2); Basophils % (auto) 0.2 % (0.0-2.0); Eosinophils # (auto) 0.7 10 ^3/uL (0-0.8); Eosinophils % (auto) 4.8 % (0.0-7.0); Hematocrit 39.2 % (36.0-46.0); Hemoglobin 13.5 g/dL (12.2-16.2); Lymphocytes # (auto) 3.8 10 ^3/uL (0.4-5.4); Lymphocytes % (auto) 27.9 % (10.0-50.0); Mean Corpuscular Hemoglobin 31.3 pg (28.0-32.0); Mean Corpuscular Hgb Conc. 34.5 g/dL (32.0-36.0); Mean Corpuscular Volume 90.8 fL (80.0-100.0); Monocytes # (auto) 0.4 10 ^3/uL (0-1.3); Monocytes % (auto) 3.2 % (0.0-12.0); Neutrophils # (auto) 8.8 10 ^3/uL (1.6-8.6); Neutrophils % (auto) 63.9 % (37.0-80.0); Nucleated Red Blood Cells % 0.1 %; Platelet Count (auto) 384 10^3/uL (140-450); Red Blood Cells 4.32 10^6/uL (4.0-5.20); White Blood Cell 13.8 10^3/uL (4.4-10.8)
[2020-10-25 21:38] LABS: Albumin 3.7 g/dL (3.4-5.0); Magnesium 2.3 mg/dL (1.6-2.6); Potassium 3.3 mmol/L (3.5-5.1)
[2020-10-25 21:42] LABS: BUN/Creatinine Ratio 19.4; Bilirubin, Total 0.4 mg/dL (0.2-1.0); Total Protein 7.5 g/dL (6.4-8.2)
[2020-10-25] MEDS ORDERED: MAGNESIUM SULFATE 1GM/100ML 100 ML IV SCH (22:00)
[2020-10-25 22:02] LABS: Urine Bacteria FEW /hpf (None Seen); Urine Blood Negative /uL (Negative); Urine Hyaline Cast FEW /lpf (0 - 2); Urine WBC 3 /hpf (0 - 5)
[2020-10-26 00:24] VITALS: BP 122/60
== END 2020-10-26 00:30 | disposition left against medical advice (07) ==
LOC: EDUNIT# 19:35 → ER 19:40
DX: O26.891 Other specified pregnancy related conditions, first trimester (principal); J45.901 Unspecified asthma with (acute) exacerbation; Z3A.01 Less than 8 weeks gestation of pregnancy
CPT/HCPCS: 36415; 76801; 80053; 81001; 83605; 83735; 84702; 85025; 87040; 94660; 96365; 96375; 99284; J2930; J3475; J7644

== ENCOUNTER 2020-11-03 11:38 | Emergency (ER) | payer MEDICAID ==
[~2020-11-03] VITALS: Ht 144.8 cm; Wt 72.6 kg
[2020-11-03] MEDS ORDERED: ALBUTEROL SULF 2.5 MG/0.5ML(0.5%) NEB SOLN NEB ONE (12:30)
[2020-11-03] MEDS ORDERED: methylPREDNISolone SOD SUCC 125 MG/2 ML VL IV ONE (12:30)
[2020-11-03] MEDS ORDERED: IPRATROPIUM BROM 0.5 MG/2.5ML INH SOL NEB ONE (12:30)
[2020-11-03 13:55] LABS: Basophils # (auto) 0 10 ^3/uL (0-0.2); Basophils % (auto) 0.1 % (0.0-2.0); Eosinophils # (auto) 0.2 10 ^3/uL (0-0.8); Eosinophils % (auto) 1.7 % (0.0-7.0); Hematocrit 37.4 % (36.0-46.0); Hemoglobin 13.1 g/dL (12.2-16.2); Lymphocytes # (auto) 1.6 10 ^3/uL (0.4-5.4); Lymphocytes % (auto) 12.2 % (10.0-50.0); Mean Corpuscular Hemoglobin 31.5 pg (28.0-32.0); Mean Corpuscular Hgb Conc. 35.1 g/dL (32.0-36.0); Mean Corpuscular Volume 89.9 fL (80.0-100.0); Monocytes # (auto) 0.5 10 ^3/uL (0-1.3); Monocytes % (auto) 4.1 % (0.0-12.0); Neutrophils # (auto) 10.8 10 ^3/uL (1.6-8.6); Neutrophils % (auto) 81.9 % (37.0-80.0); Platelet Count (auto) 381 10^3/uL (140-450); Red Blood Cells 4.16 10^6/uL (4.0-5.20); White Blood Cell 13.1 10^3/uL (4.4-10.8)
[2020-11-03 13:59] VITALS: BP 119/60
[2020-11-03 14:14] LABS: Albumin 4.3 g/dL (3.4-5.0); Calcium 8.4 mg/dL (8.5-10.1); Potassium 3.6 mmol/L (3.5-5.1)
[2020-11-03 14:18] LABS: BUN/Creatinine Ratio 12.3; Bilirubin, Total 0.3 mg/dL (0.2-1.0); Total Protein 6.9 g/dL (6.4-8.2)
== END 2020-11-03 15:10 | disposition home or self-care (01) ==
LOC: EDBD 11:38 → ER 11:38
DX: O99.511 Diseases of the respiratory system complicating pregnancy, first trimester (principal); J45.901 Unspecified asthma with (acute) exacerbation; O23.41 Unspecified infection of urinary tract in pregnancy, first trimester; Z90.49 Acquired absence of other specified parts of digestive tract; Z3A.00 Weeks of gestation of pregnancy not specified
CPT/HCPCS: 36415; 80053; 85025; 94640; 96374; 99283; J2930; J7644

== ENCOUNTER 2020-11-19 13:25 | Inpatient (IN) | payer MEDICAID ==
[~2020-11-19] VITALS: Ht 162.6 cm; Wt 73.9 kg
[2020-11-19] MEDS ORDERED: ALBUTEROL SULF 2.5 MG/0.5ML(0.5%) NEB SOLN HHN ONE (13:30)
[2020-11-19] MEDS ORDERED: IPRATROPIUM BROM 0.5 MG/2.5ML INH SOL HHN ONE (13:30)
[2020-11-19] MEDS ORDERED: methylPREDNISolone SOD SUCC 125 MG/2 ML VL IV ONE (13:30)
[2020-11-19 14:01] LABS: Basophils # (auto) 0 10 ^3/uL (0-0.2); Basophils % (auto) 0.2 % (0.0-2.0); Eosinophils # (auto) 0.4 10 ^3/uL (0-0.8); Eosinophils % (auto) 2.8 % (0.0-7.0); Hematocrit 36.2 % (36.0-46.0); Hemoglobin 12.7 g/dL (12.2-16.2); Lymphocytes # (auto) 3.2 10 ^3/uL (0.4-5.4); Lymphocytes % (auto) 24.6 % (10.0-50.0); Mean Corpuscular Hemoglobin 31.6 pg (28.0-32.0); Mean Corpuscular Volume 90.3 fL (80.0-100.0); Monocytes # (auto) 0.5 10 ^3/uL (0-1.3); Monocytes % (auto) 4.2 % (0.0-12.0); Neutrophils # (auto) 8.9 10 ^3/uL (1.6-8.6); Neutrophils % (auto) 68.2 % (37.0-80.0); Platelet Count (auto) 384 10^3/uL (140-450); Red Blood Cells 4.01 10^6/uL (4.0-5.20); Red Cell Distribution Width 12.8 % (11.8-14.3); White Blood Cell 13.1 10^3/uL (4.4-10.8)
[2020-11-19 14:19] LABS: Albumin 3.1 g/dL (3.4-5.0); Calcium 9.1 mg/dL (8.5-10.1); Potassium 3.3 mmol/L (3.5-5.1)
[2020-11-19 14:23] LABS: BUN/Creatinine Ratio 18.2; Bilirubin, Total 0.4 mg/dL (0.2-1.0); Total Protein 6.9 g/dL (6.4-8.2)
[2020-11-19] MEDS ORDERED: NITROGLYCERIN 0.4 MG SL TAB SL PRN (16:30)
[2020-11-19] MEDS ORDERED: ONDANSETRON HCL 4 MG/2 ML VIAL IV PRN (16:30)
[2020-11-19] MEDS ORDERED: ACETAMINOPHEN 325 MG TAB PO PRN (16:30)
[2020-11-19] MEDS ORDERED: MORPHINE SULF INJ 2 MG/ML SYRINGE 1ML IV PRN ×2 (16:30)
[2020-11-19 19:07] VITALS: BP 140/68
[2020-11-19 20:22] VITALS: BP 131/73
[2020-11-19 22:00] VITALS: BP 131/73
[2020-11-19] MEDS: methylPREDNISolone SOD SUCC 40 MG/ML VL IV SCH (22:00)
[2020-11-19] MEDS: ALBUTEROL SULF 2.5 MG/0.5ML(0.5%) NEB SOLN NEB PRN (23:12)
[2020-11-19] MEDS ORDERED: ALPR0.5T PO (23:37)
[2020-11-19] MEDS ORDERED: FLUT1INH6 IN (23:37)
[2020-11-20 05:00] VITALS: BP 115/61
[2020-11-20] MEDS: methylPREDNISolone SOD SUCC 40 MG/ML VL IV SCH ×2 (06:25→13:03)
[2020-11-20 06:27] LABS: Basophils # (auto) 0 10 ^3/uL (0-0.2); Basophils % (auto) 0.2 % (0.0-2.0); Eosinophils # (auto) 0 10 ^3/uL (0-0.8); Eosinophils % (auto) 0.1 % (0.0-7.0); Hematocrit 37.6 % (36.0-46.0); Hemoglobin 13.1 g/dL (12.2-16.2); Lymphocytes # (auto) 1.6 10 ^3/uL (0.4-5.4); Lymphocytes % (auto) 9.2 % (10.0-50.0); Mean Corpuscular Hemoglobin 31.1 pg (28.0-32.0); Mean Corpuscular Hgb Conc. 34.7 g/dL (32.0-36.0); Mean Corpuscular Volume 89.5 fL (80.0-100.0); Monocytes # (auto) 0.3 10 ^3/uL (0-1.3); Monocytes % (auto) 1.7 % (0.0-12.0); Neutrophils # (auto) 15.7 10 ^3/uL (1.6-8.6); Neutrophils % (auto) 88.8 % (37.0-80.0); Nucleated Red Blood Cells % 0.1 %; Platelet Count (auto) 417 10^3/uL (140-450); White Blood Cell 17.7 10^3/uL (4.4-10.8)
[2020-11-20 06:42] LABS: Calcium 8.8 mg/dL (8.5-10.1); Potassium 3.7 mmol/L (3.5-5.1)
[2020-11-20 06:48] LABS: Albumin 3.2 g/dL (3.4-5.0); Bilirubin, Total 0.6 mg/dL (0.2-1.0); Magnesium 2.3 mg/dL (1.6-2.6)
[2020-11-20 08:30] VITALS: BP 130/71
[2020-11-20] MEDS: ALBUTEROL SULF 2.5 MG/0.5ML(0.5%) NEB SOLN NEB PRN (08:34)
== END 2020-11-20 14:00 | disposition home or self-care (01) | DRG 566 ==
LOC: EDBD 13:25 → ER 13:25 → EDUNIT# 13:25 → TELE 16:27 → TELE-WESTW 20:20
PROVIDERS: ADMIT Internal Medicine; ATTEND Internal Medicine
DX: O99.511 Diseases of the respiratory system complicating pregnancy, first trimester (principal); J45.52 Severe persistent asthma with status asthmaticus; E87.6 Hypokalemia; Z20.822 Contact with and (suspected) exposure to COVID-19; J98.11 Atelectasis; Z3A.11 11 weeks gestation of pregnancy; F41.9 Anxiety disorder, unspecified; O99.281 Endocrine, nutritional and metabolic diseases complicating pregnancy, first trimester; O99.341 Other mental disorders complicating pregnancy, first trimester; Z80.3 Family history of malignant neoplasm of breast; Z82.49 Family history of ischemic heart disease and other diseases of the circulatory system; Z83.3 Family history of diabetes mellitus; Z87.891 Personal history of nicotine dependence; Z90.49 Acquired absence of other specified parts of digestive tract; Z88.1 Allergy status to other antibiotic agents; Z88.8 Allergy status to other drugs, medicaments and biological substances
CPT/HCPCS: 36415; 76801; 80053; 83735; 84702; 85025; 87426; 93005; 94640; 94644; 94660; 96374; 99291; G0378

== ENCOUNTER 2020-12-01 19:41 | Emergency (ER) | payer MEDICAID ==
[~2020-12-01] VITALS: Ht 152.4 cm; Wt 74.8 kg
[~2020-12-01 19:41] MED LIST changes: +ALPR0.5T PO; +FLUT1INH6 IN
[2020-12-01 19:51] VITALS: BP 119/70
[2020-12-01] MEDS ORDERED: ALBUTEROL SULF 2.5 MG/0.5ML(0.5%) NEB SOLN HHN ONE (20:15)
[2020-12-01] MEDS ORDERED: methylPREDNISolone SOD SUCC 125 MG/2 ML VL IV ONE (20:15)
[2020-12-01] MEDS ORDERED: IPRATROPIUM BROM 0.5 MG/2.5ML INH SOL HHN ONE (20:15)
[2020-12-01 20:32] LABS: Basophils # (auto) 0 10 ^3/uL (0-0.2); Basophils % (auto) 0.1 % (0.0-2.0); Eosinophils # (auto) 0.3 10 ^3/uL (0-0.8); Eosinophils % (auto) 2.1 % (0.0-7.0); Hematocrit 37.1 % (36.0-46.0); Hemoglobin 12.8 g/dL (12.2-16.2); Lymphocytes # (auto) 3.7 10 ^3/uL (0.4-5.4); Lymphocytes % (auto) 23.6 % (10.0-50.0); Mean Corpuscular Hemoglobin 31.3 pg (28.0-32.0); Mean Corpuscular Hgb Conc. 34.5 g/dL (32.0-36.0); Mean Corpuscular Volume 90.7 fL (80.0-100.0); Monocytes # (auto) 0.6 10 ^3/uL (0-1.3); Monocytes % (auto) 3.6 % (0.0-12.0); Neutrophils # (auto) 11.1 10 ^3/uL (1.6-8.6); Neutrophils % (auto) 70.6 % (37.0-80.0); Platelet Count (auto) 408 10^3/uL (140-450); Red Blood Cells 4.09 10^6/uL (4.0-5.20); Red Cell Distribution Width 13.3 % (11.8-14.3); White Blood Cell 15.7 10^3/uL (4.4-10.8)
[2020-12-01 20:43] LABS: Anion Gap 8 (5-15); Blood Urea Nitrogen 16 mg/dL (7-18); Calcium 8.8 mg/dL (8.5-10.1); Carbon Dioxide 23 mmol/L (21-32); Chloride 106 mmol/L (98-107); Potassium 3.3 mmol/L (3.5-5.1); Sodium 137 mmol/L (136-145)
[2020-12-01 20:46] LABS: BUN/Creatinine Ratio 29.1; GFR African American 167 mL/min; GFR Non-African American 138 mL/min; Glucose 122 mg/dL (74-106)
== END 2020-12-01 21:05 | disposition left against medical advice (07) ==
LOC: EDBD 19:41 → ER 19:43
DX: O99.511 Diseases of the respiratory system complicating pregnancy, first trimester (principal); J45.901 Unspecified asthma with (acute) exacerbation; Z3A.12 12 weeks gestation of pregnancy
CPT/HCPCS: 36415; 80048; 84484; 85025; 93005

== ENCOUNTER 2021-01-02 08:19 | Emergency (ER) | payer MEDICAID ==
[~2021-01-02] VITALS: Ht 144.8 cm; Wt 76.2 kg
[2021-01-02] MEDS ORDERED: SODIUM CHLORIDE 0.9% 1,000 ML IV ONE (09:00)
[2021-01-02] MEDS ORDERED: IPRATROPIUM BROM 0.5 MG/2.5ML INH SOL NEB ONE (09:00)
[2021-01-02] MEDS ORDERED: methylPREDNISolone SOD SUCC 125 MG/2 ML VL IM ONE (09:00)
[2021-01-02] MEDS ORDERED: ALBUTEROL SULF 2.5 MG/0.5ML(0.5%) NEB SOLN NEB ONE (09:00)
[2021-01-02 09:05] VITALS: BP 121/83
== END 2021-01-02 10:22 | disposition home or self-care (01) ==
LOC: ER 08:19
DX: J45.901 Unspecified asthma with (acute) exacerbation (principal); Z90.49 Acquired absence of other specified parts of digestive tract
CPT/HCPCS: 81002; 94640; 96372; 99283; J2930; J7644

== ENCOUNTER 2021-10-28 22:21 | Emergency (ER) | payer MEDICAID ==
[~2021-10-28] VITALS: Ht 167.6 cm; Wt 62.9 kg
[2021-10-28 22:45] VITALS: BP 115/48
[2021-10-28 23:36] LABS: Basophils # (auto) 0.1 10 ^3/uL (0-0.2); Basophils % (auto) 0.8 % (0.0-2.0); Eosinophils # (auto) 0 10 ^3/uL (0-0.8); Eosinophils % (auto) 0.1 % (0.0-7.0); Hematocrit 40.3 % (36.0-46.0); Hemoglobin 13.9 g/dL (12.2-16.2); Lymphocytes # (auto) 0.7 10 ^3/uL (0.4-5.4); Lymphocytes % (auto) 9.2 % (10.0-50.0); Mean Corpuscular Hemoglobin 31.8 pg (28.0-32.0); Mean Corpuscular Hgb Conc. 34.6 g/dL (32.0-36.0); Mean Corpuscular Volume 91.8 fL (80.0-100.0); Monocytes # (auto) 0.1 10 ^3/uL (0-1.3); Monocytes % (auto) 1.7 % (0.0-12.0); Neutrophils # (auto) 6.9 10 ^3/uL (1.6-8.6); Neutrophils % (auto) 88.2 % (37.0-80.0); Red Blood Cells 4.39 10^6/uL (4.0-5.20); Red Cell Distribution Width 13.1 % (11.8-14.3); White Blood Cell 7.9 10^3/uL (4.4-10.8)
[2021-10-28 23:56] LABS: Albumin 3.9 g/dL (3.4-5.0); Calcium 9.3 mg/dL (8.5-10.1); Potassium 4.2 mmol/L (3.5-5.1)
[2021-10-29 00:01] LABS: Bilirubin, Total 0.5 mg/dL (0.2-1.0); Total Protein 7.5 g/dL (6.4-8.2)
[2021-10-29] MEDS ORDERED: methylPREDNISolone SOD SUCC 125 MG/2 ML VL IV ONE (00:55)
== END 2021-10-29 01:00 | disposition left against medical advice (07) ==
LOC: EDBD 22:21 → ER 22:24
DX: J45.901 Unspecified asthma with (acute) exacerbation (principal)
CPT/HCPCS: 36415; 71045; 80053; 83880; 84484; 84702; 85025; 93005; 96374; 99285; J2930

== ENCOUNTER 2024-06-06 06:31 | Inpatient (IN) | payer MEDICAID ==
[2024-06-06] VITALS (9 sets, daily range): BP systolic 113–158; BP diastolic 77–92; PULSE 105–138; RESP 16–26; TEMP 98.4–98.5; O2SAT 95–99
[~2024-06-06] VITALS: Ht 144.8 cm; Wt 80.7 kg
[~2024-06-06 06:31] MED LIST changes: +FOLI-119 PO; -FOLI1TAB6 PO; +MONT4CHW74 PO; -MONT4CHW9 PO
--- NOTE | 2024-06-06 07:01 | ED.PDOC ---
SOB-HPI HPI Comments 33 y.o female with PMHx of Asthma, presents to the ED via EMS for a chief complaint of SOB associated with a productive cough that started this morning around 0300. Patient reports using inhaler at home but had no relief. EMS reports patient's SPO2 on room air was 91%, was placed on a breathing treatment increasing saturation to 97%. Patient denies any chest pain, fever, chills. Chief Complaint: Asthma Time Seen by MD: 06:40 Primary Care Provider: KOFFIK Reviewed notes: Nurses Notes, Wellness Program Manager Notes, Medications, Allergies Information Source: Patient, Emergency Med Personnel Mode of Arrival: EMS Severity: Moderate Timing: Hours Duration: Since onset Context: At Rest PE Risk Factors: None History of: Asthma Prehospital treatment: Breathing Tx Modifying Factors: Nothing Associated Signs and Symptoms: Cough If cough with SOB: Productive Past Medical History PAST MEDICAL HISTORY: Anxiety, Asthma Surgical History: Cholecystectomy, SHRUB GROWER History: No Pertinent SHRUB GROWER History Family History Family History: Family hx of DM, Family hx of heart luz maria, Family hx of HTN Social History Smoker: Non-Smoker Alcohol: Denies ETOH Use Drugs: Denies Drug Use Lives In: Home Constitutional: denies: chills, diaphoresis, fatigue, fever, malaise, sweats, weakness, others EENTM: denies: blurred vision, double vision, ear bleeding, ear discharge, ear drainage, ear pain, ear ringing, eye pain, eye redness, hearing loss, mouth pain, mouth swelling, nasal discharge, nose bleeding, nose congestion, nose pain, photophobia, tearing, throat pain, throat swelling, voice changes, others Respiratory: reports: cough, SOB at rest, shortness of breath, SOB with excertion; denies: hemoptysis, orthopnea, stridor, wheezing, others Cardiovascular: denies: chest pain, dizzy spells, diaphoresis, Dyspnea on exertion, edema, irregular heart beat, left arm pain, lightheadedness, palpitations, PND, syncope, others Gastrointestinal: denies: abdomen distended, abdominal pain, blood streaked bowels, constipated, diarrhea, dysphagia, difficulty swallowing, hematemesis, melena, nausea, poor appetite, poor fluid intake, rectal bleeding, rectal pain, vomiting, others Genitourinary: denies: abnormal vagina bleeding, burning, dyspareunia, dysuria, flank pain, frequency, hematuria, incontinence, pain, , vagina discharge, urgency, others Neurological: denies: dizziness, fainting, headache, left sided numbness, left sided weakness, numbness, paresthesia, pre-existing deficit, right sided numbness, right sided weakness, seizure, speech problems, tingling, tremors, weakness, others Musculoskeletal: denies: back pain, gout, joint pain, joint swelling, muscle pain, muscle stiffness, neck pain, others Integumetry: denies: bruises, change in color, change in hair/nails, dryness, laceration, lesions, lumps, rash, wounds, others Allergic/Immunocompromised: denies: Difficulty Healing, Frequent Infections, Hives, Itching, others Hematologic/Lymphatic: denies: anemia, blood clots, easy bleeding, easy bruising, swollen glands, others Endocrine: denies: excessive hunger, excessive sweating, excessive thirst, excessive urination, flushing, intolerance to cold, intolerance to heat, unexplained weight gain, unexplained weight loss, others Psychiatric: denies: anxiety, bipolar disorder, depression, hopeless, panic disorder, schizophrenia, sleepless, suicidal, others All Other Systems: Reviewed and Negative Physical Exam General Appearance: No Apparent Distress, Normal HEENT: Normal ENT Inspection, Pharynx Normal, TMs Normal Neck: Full Range of Motion, Non-Tender, Normal, Normal Inspection Respiratory: Respiratory Distress Cardiovascular: No Edema, No JVD, No Murmur, No Gallop, Normal Peripheral Pulses, Regular Rate/Rhythm Breast Exam: Deferred Gastrointestinal: No Organomegaly, Non Tender, No Pulsatile Mass, Normal Bowel Sounds, Soft Genitalia: Deferred Pelvic: Deferred Rectal: Deferred Extremities: No calf tenderness, Normal capillary refill, Normal inspection, Normal range of motion, Non-tender, No pedal edema Musculoskeletal : Apperance: Normal Neurologic: Alert, financial sales advisor II-XII nml as Tested, No Motor Deficits, Normal Affect, Normal Mood, No Sensory Deficits Cerebellar Function: Normal Reflexes: Normal Skin: Dry, Normal Color, Warm Lymphatic: No Adenopathy Was a procedure done? Was a procedure done?: No Differential Dx Differential Diagnosis: Asthma, Bronchitis, Pneumonia, Respiratory Distress, URI X-Ray, Labs, Meds, VS Vital Signs Date Time Temp Pulse Resp B/P (MAP) Pulse Ox O2 Delivery O2 Flow Rate FiO2 06/06/24 08:48 12 92 Nasal Cannula* 1 24 06/06/24 07:45 98.4 111 19 126/54 (78) 95 98.4 06/06/24 07:45 111 19 95 Room Air* 0 21 06/06/24 06:52 119 21 99 Simple Mask* 8 60 06/06/24 06:42 99.0 136 22 151/76 (101) 96 Lab Test 06/06/24 06:58 Range/Units White Blood Count 13.4 H 4.4-10.8 10^3/uL Red Blood Count 3.77 L 4.0-5.20 10^6/uL Hemoglobin 11.8 L 12.2-16.2 g/dL Hematocrit 35.7 L 36.0-46.0 % Mean Corpuscular Volume 94.6 80.0-100.0 fL Mean Corpuscular Hemoglobin 31.4 28.0-32.0 pg Mean Corpuscular Hemoglobin Concent 33.1 32.0-36.0 g/dL Red Cell Distribution Width 13.1 11.8-14.3 % Platelet Count 421 140-450 10^3/uL Mean Platelet Volume 6.3 L 6.9-10.8 fL Neutrophils (%) (Auto) 85.7 H 37.0-80.0 % Lymphocytes (%) (Auto) 9.7 L 10.0-50.0 % Monocytes (%) (Auto) 2.5 0.0-12.0 % Eosinophils (%) (Auto) 1.9 0.0-7.0 % Basophils (%) (Auto) 0.2 0.0-2.0 % Neutrophils # (Auto) 11.5 H 1.6-8.6 10 ^3/uL Lymphocytes # (Auto) 1.3 0.4-5.4 10 ^3/uL Monocytes # (Auto) 0.3 0-1.3 10 ^3/uL Eosinophils # (Auto) 0.3 0-0.8 10 ^3/uL Basophils # (Auto) 0 0-0.2 10 ^3/uL Nucleated Red Blood Cells 0.0 % Sodium Level 140 136-145 mmol/L Potassium Level 3.3 L 3.5-5.1 mmol/L Chloride Level 108 H 98-107 mmol/L Carbon Dioxide Level 23 20-31 mmol/L Anion Gap 9 5-15 Blood Urea Nitrogen 16 9-23 mg/dL Creatinine 0.62 0.550-1.02 mg/dL Glomerular Filtration Rate Calc 121 >90 mL/min BUN/Creatinine Ratio 25.8 H 10.0-20.0 Serum Glucose 181 H 74-106 mg/dL Lactic Acid Level 1.6 0.4-2.0 mmol/L Calcium Level 9.4 8.7-10.4 mg/dL Total Bilirubin 0.4 0.2-1.0 mg/dL Aspartate Amino Transferase (AST) 20 13-40 U/L Alanine Aminotransferase (ALT) 115 H 7-40 U/L Alkaline Phosphatase 216 H 46-116 U/L Total Protein 6.0 5.7-8.2 g/dL Albumin 3.7 3.2-4.8 g/dL Current Medications Medications (Trade) Dose Ordered Sig/Catarino Route Start Time Stop Time Status Last Admin Prednisone 60 mg ONCE ONCE PO 06/06/24 06:45 06/06/24 06:50 DC 06/06/24 07:08 Albuterol (Ventolin Medneb) 5 mg ONCE ONCE NEB 06/06/24 06:45 06/06/24 06:50 DC 06/06/24 08:48 Ipratropium [place] (Atrovent Medneb) 0.5 mg ONCE ONCE NEB 06/06/24 06:45 06/06/24 06:50 DC 06/06/24 08:48 Time of 1ST Reevaluation: 06:56 Reevaluation 1ST: Unchanged Patient Education/Counseling: Diagnosis, Treatment, Prognosis Family Education/Counseling: No Family Present Additional Information I reviewed the following notes from patient's past medical encounters: LAB, PHA, RT, CXR The following tests were ordered, and results were reviewed by me: LAB, CXR Additional Information was gathered from interviewing the following independent historians: EMS I reviewed and agreed with the following test results read by other providers: CXR I discussed treatment and results with medical personnel and patient [address] [address] Ph: [phone] DIAGNOSTIC IMAGING Diagnostic Imaging Report : [id number] Signed PATIENT: ALEX MUHAMMAD ACCT: [id number] UNIT: [id number] : 1990 LOC: ER ROOM / BED: / AGE / SEX: 33 / F ADM STATUS: REG ER SERVICE ORDERING PHYSICIAN: CORINA ASHTON MD PROCEDURE(s): CXR1 - CHEST XRAY 1 VIEW REASON: SOB ORDER NUMBER(s): [id number], ACCESSION NUMBER(s): [id number] CHEST RADIOGRAPH Indication: SOB Technique: Single frontal view of the chest was obtained Comparison: CXRP on DOS: 10/29/21 FINDINGS: Lines and Tubes: None Lungs: No focal consolidation. Pleura: No effusion. No pneumothorax. Cardiomediastinal contours: Unremarkable Bones: No acute osseous abnormality. IMPRESSION: 1. No acute cardiopulmonary disease. ATED BY: PAPO GEORGE MD DICTATED DATE/TIME: 06/06/24717 SIGNED BY: PAPO GEORGE MD SIGNED DATE/TIME: 06/06/24717 CC: Critical Care Note Critical Care Time?: No Stability Stability form required: No I personally scribed for CORINA ASHTON MD ([email or web address]) on 06/06/24 at 07:01. Electronically submitted by Kayleigh Beltre ([facility] I personally scribed for CORINA ASHTON MD ([email or web address]) on 06/06/24 at 10:10. Electronically submitted by Kayleigh Beltre ([facility]). CORINA ASHTON MD Jun 06, 2024 07:01
[2024-06-06] MEDS: predniSONE 20 MG TAB PO ONE (07:08)
[2024-06-06 07:17] LABS: Basophils # (auto) 0 10 ^3/uL (0-0.2); Basophils % (auto) 0.2 % (0.0-2.0); Eosinophils # (auto) 0.3 10 ^3/uL (0-0.8); Eosinophils % (auto) 1.9 % (0.0-7.0); Hematocrit 35.7 % (36.0-46.0); Hemoglobin 11.8 g/dL (12.2-16.2); Lymphocytes # (auto) 1.3 10 ^3/uL (0.4-5.4); Lymphocytes % (auto) 9.7 % (10.0-50.0); Mean Corpuscular Hemoglobin 31.4 pg (28.0-32.0); Mean Corpuscular Hgb Conc. 33.1 g/dL (32.0-36.0); Mean Corpuscular Volume 94.6 fL (80.0-100.0); Monocytes # (auto) 0.3 10 ^3/uL (0-1.3); Monocytes % (auto) 2.5 % (0.0-12.0); Neutrophils # (auto) 11.5 10 ^3/uL (1.6-8.6); Neutrophils % (auto) 85.7 % (37.0-80.0); Platelet Count (auto) 421 10^3/uL (140-450); Red Blood Cells 3.77 10^6/uL (4.0-5.20); Red Cell Distribution Width 13.1 % (11.8-14.3); White Blood Cell 13.4 10^3/uL (4.4-10.8)
--- NOTE | 2024-06-06 07:20 | DVH ---
CHEST RADIOGRAPH Indication: SOB Technique: Single frontal view of the chest was obtained Comparison: CXRP on DOS: 10/29/21 FINDINGS: Lines and Tubes: None Lungs: No focal consolidation. Pleura: No effusion. No pneumothorax. Cardiomediastinal contours: Unremarkable Bones: No acute osseous abnormality. IMPRESSION: 1. No acute cardiopulmonary disease.
[2024-06-06 07:41] LABS: Albumin 3.7 g/dL (3.2-4.8); Anion Gap 9 (5-15); Aspartate Aminotransferase 20 U/L (13-40); BUN/Creatinine Ratio 25.8 (10.0-20.0); Bilirubin, Total 0.4 mg/dL (0.2-1.0); Blood Urea Nitrogen 16 mg/dL (9-23); Calcium 9.4 mg/dL (8.7-10.4); Carbon Dioxide 23 mmol/L (20-31); Sodium 140 mmol/L (136-145)
[2024-06-06 07:45] LABS: Alanine Aminotransferase 115 U/L (7-40); Alkaline Phosphatase 216 U/L (46-116); Chloride 108 mmol/L (98-107); Glucose 181 mg/dL (74-106); Potassium 3.3 mmol/L (3.5-5.1)
[2024-06-06] MEDS: ALBUTEROL SULF 2.5 MG/0.5ML(0.5%) NEB SOLN NEB ONE (08:48)
[2024-06-06] MEDS: IPRATROPIUM BROM 0.5 MG/2.5ML INH SOL NEB ONE (08:48)
[2024-06-06 12:27] LABS: Rapid Influenza A Negative (Negative); Rapid Influenza B Negative (Negative)
[2024-06-06 12:28] LABS: COVID19 ANTIGEN SOFIA FIA NEGATIVE (NEGATIVE)
--- NOTE | 2024-06-06 12:53 | DVH ---
RIGHT LOWER EXTREMITY VENOUS DOPPLER CLINICAL HISTORY: SOB s/p c section with elevated d dimer TECHNIQUE: Right lower extremity venous doppler study was performed. COMPARISON: None FINDINGS: The right common femoral, superficial femoral, popliteal, posterior tibial veins appear patent with normal augmentation, phasicity, compressibility and color-flow.. IMPRESSION: 1. No sonographic evidence of DVT in the right leg. HS:Y
[2024-06-06] MEDS: ONDANSETRON HCL 4 MG/2 ML VIAL IV ONE (13:36)
[2024-06-06] MEDS: MORPHINE SULFATE 4 MG/ML SYR/VIAL IV ONE (13:37)
[2024-06-06] MEDS: IOHEXOL 350 MG/ML 100ML IJ ONE (13:47)
[2024-06-06] MEDS ORDERED: ACETAMINOPHEN 325 MG TAB PO PRN (14:00)
[2024-06-06] MEDS ORDERED: ALPRAZolam 0.5 MG TAB PO SCH (14:00)
[2024-06-06] MEDS ORDERED: ONDANSETRON HCL 4 MG/2 ML VIAL IV PRN (14:00)
--- NOTE | 2024-06-06 14:11 | DVHHP2 ---
History of Present Illness Reason for Visit: Shortness of breath, cough, and fever History of Present Illness Raina Finn is a 33-year-old female with past medical history of anxiety and asthma who presents to the ED for shortness of breath, cough, fever, and chest pain x1 day. Patient reports that her 5-year-old daughter is sick with a cough and fever also has asthma. Patient reports that she started to feel short of breath around 3:00 a.m. this morning. She also reports that she has has been intubated 6 times because of her asthma attacks, her most recent one was in 2014 at [facility]. Patient also reports that she is compliant with her medications and she sees an asthma/track repairer helper including her primary doctor at [facility]. Patient reports that she recently had a 1 week ago. Patient also reports that she had gestational diabetes. Patient denies any chills, headache, lightheadedness, dizziness, nausea, vomiting, diarrhea, and abdominal pain. Pulmonary: Asthma Psych: Anxiety Past Surgical History: Cholecystectomy, Family History: DM, Hypertension, Other (Mom and dad heart disease) Smoke: No ALCOHOL: none Drugs: None Lives: with Family Domestic Violence: Neg Review of Systems Constitutional: Yes: Fever; No: Chills, Sweats, Weakness, Malaise, Other Eyes: No: Pain, Vision change, Conjunctivae inflammation, Eyelid inflammation, Other, Redness ENT: No: Ear pain, Ear discharge, Nose pain, Nose discharge, Nose congestion, Mouth pain, Mouth swelling, Throat pain, Throat swelling, Other Respiratory: Cough, Shortness of breath; No: Dry, SOB with excertion, Wheezing, Hemoptysis, Pleuritic Pain, Sputum, Wheezing, Other Cardiovascular: Chest Pain; No: Palpitations, Orthopnea, Paroxysmal Noc. Dyspn ea, Edema, Lt Headedness, Other Gastrointestinal: No: Nausea, Vomiting, Abdominal Pain, Diarrhea, Constipation, Melena, Hematochezia, Other Genitourinary: No Dysuria, No Frequency, No Incontinence, No Hematuria, No Retention, No Other Musculoskeletal: No: other, neck pain, shoulder pain, arm pain, back pain, hand pain, leg pain, foot pain Skin: No: Rash, Lesions, Jaundice, Bruising, Other Neurological: No: Weakness, Numbness, Incoordination, Change in speech, Confusion, Seizures, Other Allergies: Coded Allergies: Amoxicillin (Verified Allergy, Severe, 09/13/15) Zolpidem (Verified Allergy, Severe, 09/13/15) Medications Current Medications Medications Dose Ordered Sig/Catarino Route Start Time Stop Time Status Last Admin Dose Admin Albuterol 2.5 mg Q6HWA [facility] 06/06/24 18:00 UNV Albuterol 2.5 mg Q4HPRN PRN [facility] 06/06/24 14:00 UNV Ipratropium [place] 0.5 mg Q6HWA [facility] 06/06/24 18:00 UNV Ipratropium [place] 0.5 mg Q4HPRN PRN [facility] 06/06/24 14:00 UNV Methylprednisolone Sodium Succinate 40 mg BID IV 06/06/24 22:00 UNV Exam Vital Signs Vital Signs Date Time Temp Pulse Resp B/P (MAP) Pulse Ox O2 Delivery O2 Flow Rate FiO2 06/06/24 13:37 121 25 134/77 06/06/24 12:00 96 06/06/24 08:48 Nasal Cannula* 1 06/06/24 07:45 98.4 98.4 General Appearance: Alert, Oriented X3, Cooperative, moderate distress HEENT: Atraumatic, PERRLA, EOMI, Mucous membr. moist/pink Respiratory: Normal air movement Cardiovascular: Normal S1, Normal S2, No murmurs Abdominal: Normal bowel sounds, Soft, No tenderness, No hepatospenomegaly, No masses Extremities: No clubbing, No cyanosis, No edema, Normal pulses, No tenderness/swelling Skin: No rashes, No breakdown, No significant lesion Neuro: Normal gait, Normal speech, Strength at 5/5 X4 ext, Normal tone, Sensation intact Psych/Mental Status: Mental status NL, Mood NL Labs/Xrays Labs Test 06/06/24 11:20 06/06/24 06:58 Range/Units Influenza Type A Antigen Negative Negative Influenza Type B Antigen Negative Negative SARS-CoV-2 Antigen (Rapid) Negative NEGATIVE White Blood Count 13.4 H 4.4-10.8 10^3/uL Red Blood Count 3.77 L 4.0-5.20 10^6/uL Hemoglobin 11.8 L 12.2-16.2 g/dL Hematocrit 35.7 L 36.0-46.0 % Mean Corpuscular Volume 94.6 80.0-100.0 fL Mean Corpuscular Hemoglobin 31.4 28.0-32.0 pg Mean Corpuscular Hemoglobin Concent 33.1 32.0-36.0 g/dL Red Cell Distribution Width 13.1 11.8-14.3 % Platelet Count 421 140-450 10^3/uL Mean Platelet Volume 6.3 L 6.9-10.8 fL Neutrophils (%) (Auto) 85.7 H 37.0-80.0 % Lymphocytes (%) (Auto) 9.7 L 10.0-50.0 % Monocytes (%) (Auto) 2.5 0.0-12.0 % Eosinophils (%) (Auto) 1.9 0.0-7.0 % Basophils (%) (Auto) 0.2 0.0-2.0 % Neutrophils # (Auto) 11.5 H 1.6-8.6 10 ^3/uL Lymphocytes # (Auto) 1.3 0.4-5.4 10 ^3/uL Monocytes # (Auto) 0.3 0-1.3 10 ^3/uL Eosinophils # (Auto) 0.3 0-0.8 10 ^3/uL Basophils # (Auto) 0 0-0.2 10 ^3/uL Nucleated Red Blood Cells 0.0 % D-Dimer, Quantitative 1.52 H 0.0-0.49 mg/L FEU Sodium Level 140 136-145 mmol/L Potassium Level 3.3 L 3.5-5.1 mmol/L Chloride Level 108 H 98-107 mmol/L Carbon Dioxide Level 23 20-31 mmol/L Anion Gap 9 5-15 Blood Urea Nitrogen 16 9-23 mg/dL Creatinine 0.62 0.550-1.02 mg/dL Glomerular Filtration Rate Calc 121 >90 mL/min BUN/Creatinine Ratio 25.8 H 10.0-20.0 Serum Glucose 181 H 74-106 mg/dL Lactic Acid Level 1.6 0.4-2.0 mmol/L Calcium Level 9.4 8.7-10.4 mg/dL Total Bilirubin 0.4 0.2-1.0 mg/dL Aspartate Amino Transferase (AST) 20 13-40 U/L Alanine Aminotransferase (ALT) 115 H 7-40 U/L Alkaline Phosphatase 216 H 46-116 U/L B-Type Natriuretic Peptide 76.02 0-100 pg/mL Total Protein 6.0 5.7-8.2 g/dL Albumin 3.7 3.2-4.8 g/dL RIGHT LOWER EXTREMITY VENOUS DOPPLER CLINICAL HISTORY: SOB s/p c section with elevated d dimer TECHNIQUE: Right lower extremity venous doppler study was performed. COMPARISON: None FINDINGS: The right common femoral, superficial femoral, popliteal, posterior tibial veins appear patent with normal augmentation, phasicity, compressibility and color-flow.. IMPRESSION: 1. No sonographic evidence of DVT in the right leg. CHEST RADIOGRAPH Indication: SOB Technique: Single frontal view of the chest was obtained Comparison: CXRP on DOS: 10/29/21 FINDINGS: Lines and Tubes: None Lungs: No focal consolidation. Pleura: No effusion. No pneumothorax. Cardiomediastinal contours: Unremarkable Bones: No acute osseous abnormality. IMPRESSION: 1. No acute cardiopulmonary disease. CTA CHEST INDICATION: SOB s/p surgery with elevated d dimer. PE TECHNIQUE: Multidetector CTA of the chest was performed of the chest with 100 cc of intravenous contrast. PULMONARY ANGIOGRAPHY PROTOCOL was utilized using a bolus-tracking technique centered on the main pulmonary artery. Axial, coronal and sagittal multiplanar and MIP reformats were performed. Radiation Dose Information: CT Dose: CTDI volume is 20.62 mGy. Dose-length product is 712.69 mGy*cm The dose indicators for CT are the volume Computed Tomography (CT) Dose Index (CTDIvol) and the Dose Length Product (DLP), and are measured in units of mGy and mGy-cm, respectively. These indicators are not patient dose, but values generated from the CT scanner acquisition factors. The report includes radiation exposure data for exposures received during this examination. Findings: Evaluation of the lungs and pulmonary arteries is limited secondary to respiratory motion artifact. Pulmonary artery: There is no obvious pulmonary arterial filling defect to suggest pulmonary embolism. The main pulmonary artery demonstrates normal caliber. Lungs/Pleura: Mild scarring versus atelectasis in the posterior lung bases. No focal consolidation, pulmonary mass, or suspicious pulmonary nodule. There is no pleural effusion. Heart/Vascular Structures: Normal heart size. The thoracic aorta demonstrates normal caliber. There is no evidence of pericardial effusion. Lymph Nodes: There are subcentimeter mediastinal lymph nodes. There is no hilar or axillary lymphadenopathy. Musculoskeletal: No acute osseous abnormality. Upper abdomen: Gallbladder is surgically absent. Remaining visualized upper abdominal viscera appears within normal limits. IMPRESSION: 1. There is no obvious pulmonary arterial filling defect to suggest pulmonary embolism. 2. There is no acute pulmonary process. Assessment/Plan Assessment/Plan Assessment/Plan: Acute on chronic Asthma exacerbation Leukocytosis Atypical chest pain ACS protocol asa statin Respiratory treatments Chest x-ray noted EKG Steroids Oxygen prn Labs A.m. labs IV Abx CTA chest US DVT - negative Covid negative Flu negative BNP D-dimer - positive - lovenox until CTA results negative troponin's mag sulfate ordered by ER elevated ALT and alk phos monitor, if uptrend then do workup follow up with GI outpatient Hypokalemia replete lytes monitor Hx of Gestational DM HgbA1C 5.4% Chronic Anxiety continue home meds FEN/PPX diet HL DVT ppx lovenox PUD ppx not indicated no hx of GERD Discussed plan of care with patient and nurse Home medications reconciled Admit to med surg Plan discussed with: Patient My Orders Orders - CONNIE MENENDEZ Procedure Category Date Status Time Albuterol Medneb PHA 06/06/24 Logged (Ventolin Medneb) 18:00 Albuterol Medneb PHA 06/06/24 Logged (Ventolin Medneb) 14:00 Ipratropium Medneb PHA 06/06/24 Logged (Atrovent Medneb) 18:00 Ipratropium Medneb PHA 06/06/24 Logged (Atrovent Medneb) 14:00 Methylprednisolone PHA 06/06/24 Logged Sod Succ (Solu Medrol 22:00 Hemoglobin A1c LAB 06/06/24 Logged 13:46 Date of Service: Jun 06, 2024 Billing Provider: CONNIE MENENDEZ Common Visit Codes: [id number] INP/OBS CARE (MOD) CONNIE MENENDEZ Jun 06, 2024 14:11
[2024-06-06] MEDS ORDERED: NITROGLYCERIN 0.4 MG SL TAB SL PRN (14:15)
--- NOTE | 2024-06-06 14:27 | DVH ---
CTA CHEST INDICATION: SOB s/p surgery with elevated d dimer. PE TECHNIQUE: Multidetector CTA of the chest was performed of the chest with 100 cc of intravenous contr ast. PULMONARY ANGIOGRAPHY PROTOCOL was utilized using a bolus-tracking technique centered on the lizette n pulmonary artery. Axial, coronal and sagittal multiplanar and MIP reformats were performed. Radiation Dose Information: CT Dose: CTDI volume is 20.62 mGy. Dose-length product is 712.69 mGy*cm The dose indicators for CT are the volume Computed Tomography (CT) Dose Index (CTDIvol) and the Dose Length Product (DLP), and are measured in units of mGy and mGy-cm, respectively. These indicators are not patient dose, but values generated from the CT scanner acquisition factors. The report includes radiation exposure data for exposures received during this examination. Findings: Evaluation of the lungs and pulmonary arteries is limited secondary to respiratory motion artifact. Pulmonary artery: There is no obvious pulmonary arterial filling defect to suggest pulmonary embolis m. The main pulmonary artery demonstrates normal caliber. Lungs/Pleura: Mild scarring versus atelectasis in the posterior lung bases. No focal consolidation, p ulmonary mass, or suspicious pulmonary nodule. There is no pleural effusion. Heart/Vascular Structures: Normal heart size. The thoracic aorta demonstrates normal caliber. There is no evidence of pericardial effusion. Lymph Nodes: There are subcentimeter mediastinal lymph nodes. There is no hilar or axillary lymphade nopathy. Musculoskeletal: No acute osseous abnormality. Upper abdomen: Gallbladder is surgically absent. Remaining visualized upper abdominal viscera appea rs within normal limits. IMPRESSION: 1. There is no obvious pulmonary arterial filling defect to suggest pulmonary embolism. 2. There is no acute pulmonary process. HS:Y
[2024-06-06] MEDS ORDERED: MORPHINE SULFATE INJ 2 MG/ml SYRG IV PRN (14:30)
[2024-06-06] MEDS: POTASSIUM CHL 20 Meq TABLET PO ONE (14:34)
[2024-06-06] MEDS: ASPirin 81 mg TAB PO ONE (14:35)
[2024-06-06] MEDS: cefTRIAXone 1GM/50ML D5W 50 ML IV ONE (14:35)
[2024-06-06] MEDS: ALBUTEROL SULF 2.5 MG/0.5ML(0.5%) NEB SOLN NEB PRN (15:46)
[2024-06-06] MEDS: IPRATROPIUM BROM 0.5 MG/2.5ML INH SOL NEB PRN (15:46)
[2024-06-06] MEDS: methylPREDNISolone SOD SUCC 125 MG/2 ML VL IV ONE (17:56)
[2024-06-06] MEDS: ALBUTEROL SULF 2.5 MG/0.5ML(0.5%) NEB SOLN NEB SCH (18:15)
[2024-06-06] MEDS: IPRATROPIUM BROM 0.5 MG/2.5ML INH SOL NEB SCH ×2 (18:15→23:56)
[2024-06-06] MEDS: MORPHINE SULFATE INJ 2 MG/ml SYRG IV PRN (20:19)
[2024-06-06] MEDS: ALPRAZolam 0.5 MG TAB PO PRN (20:49)
[2024-06-06] MEDS: methylPREDNISolone SOD SUCC 40 MG/ML VL IV SCH (21:19)
[2024-06-06] MEDS: ATORVASTATIN 20 MG TAB PO SCH (21:22)
[2024-06-06] MEDS ORDERED: LEVALBUTEROL HCL 1.25 MG/3 ML NEB NEB SCH (22:00)
[2024-06-06] MEDS ORDERED: LEVALBUTEROL HCL 1.25 MG/3 ML NEB NEB PRN (22:30)
[2024-06-06] MEDS: LEVALBUTEROL HCL 1.25 MG/3 ML NEB NEB SCH (23:56)
[2024-06-07] VITALS (21 sets, daily range): BP systolic 114–158; BP diastolic 65–92; PULSE 95–116; RESP 16–30; TEMP 79.9–98.5; O2SAT 94–99
[2024-06-07] MEDS ORDERED: SERT50TA PO (00:46)
[2024-06-07] MEDS: ACETAMINOPHEN 325 MG TAB PO PRN (00:59)
[2024-06-07] MEDS ORDERED: IPRATROPIUM BROM 0.5 MG/2.5ML INH SOL NEB SCH (06:00)
[2024-06-07] MEDS ORDERED: LEVALBUTEROL HCL 1.25 MG/3 ML NEB NEB SCH (06:00)
[2024-06-07 06:44] LABS: Basophils # (auto) 0 10 ^3/uL (0-0.2); Basophils % (auto) 0.2 % (0.0-2.0); Eosinophils # (auto) 0 10 ^3/uL (0-0.8); Hemoglobin 12.5 g/dL (12.2-16.2); Monocytes # (auto) 0.3 10 ^3/uL (0-1.3)
[2024-06-07 06:46] LABS: Lymphocytes # (auto) 0.6 10 ^3/uL (0.4-5.4); Lymphocytes % (auto) 4.7 % (10.0-50.0); Mean Corpuscular Hgb Conc. 33.8 g/dL (32.0-36.0); Mean Corpuscular Volume 94.5 fL (80.0-100.0); Monocytes % (auto) 2.4 % (0.0-12.0); Neutrophils % (auto) 92.7 % (37.0-80.0); Platelet Count (auto) 493 10^3/uL (140-450); Red Blood Cells 3.92 10^6/uL (4.0-5.20); Red Cell Distribution Width 13.5 % (11.8-14.3); White Blood Cell 11.8 10^3/uL (4.4-10.8)
[2024-06-07 06:51] LABS: Albumin 4.3 g/dL (3.2-4.8); Anion Gap 12 (5-15); Aspartate Aminotransferase 21 U/L (13-40); Bilirubin, Total 0.6 mg/dL (0.2-1.0); Blood Urea Nitrogen 14 mg/dL (9-23); Calcium 10.2 mg/dL (8.7-10.4); Carbon Dioxide 23 mmol/L (20-31); Chloride 105 mmol/L (98-107); Potassium 4.1 mmol/L (3.5-5.1); Sodium 140 mmol/L (136-145)
[2024-06-07 06:54] LABS: Alanine Aminotransferase 94 U/L (7-40); Alkaline Phosphatase 195 U/L (46-116); Glucose 126 mg/dL (74-106)
[2024-06-07] MEDS: cefTRIAXone 1GM/50ML D5W 50 ML IV SCH (09:01)
[2024-06-07] MEDS: ENOXAPARIN SOD 40 MG/0.4 ML SYRINGE SC SCH (09:25)
[2024-06-07] MEDS: MORPHINE SULFATE INJ 2 MG/ml SYRG IV PRN (09:58)
--- NOTE | 2024-06-07 18:38 | DVHPN2 ---
Subjective Patient continues to report having shortness of breath. States it worsens with ambulation. Reviewed: Care Plan, H&P, Labs, Medications Changes from previous H/P or p: No Changes General: Per HPI Eyes: No Pain, No Vision change, No Conjunctivae inflammation, No Eyelid inflammation, No Other, No Redness ENT: No Ear pain, No Ear discharge, No Nose pain, No Nose discharge, No Nose congestion, No Mouth pain, No Mouth swelling, No Throat pain, No Throat swelling, No Other Cardiovascular: Chest Pain; No Palpitations, No Orthopnea, No Paroxysmal Noc. Dyspnea, No Edema, No Lt Headedness, No Other Respiratory: Cough; No Dry; Shortness of breath; No SOB with excertion, No Wheezing, No Hemoptysis, No Pleuritic Pain, No Sputum, No Other Gastrointestinal: No Nausea, No Vomiting, No Abdominal Pain, No Diarrhea, No Constipation, No Melena, No Hematochezia, No Other Genitourinary: No Dysuria, No Frequency, No Incontinence, No Hematuria, No Retention, No Other Musculoskeletal: No other, No neck pain, No shoulder pain, No arm pain, No back pain, No hand pain, No leg pain, No foot pain Skin: No Rash, No Lesions, No Jaundice, No Bruising, No Other Objective Vitals Vital Signs Date Time Temp Pulse Resp B/P (MAP) Pulse Ox O2 Delivery O2 Flow Rate FiO2 06/07/24 18:15 106 22 138/83 06/07/24 16:35 97.5 97 97.5 06/07/24 13:53 Nasal Cannula* 5 40 Intake/Output Intake and Output 06/07/24 07:00 Intake Total 150 ml Output Total 300 ml Balance -150 ml Intake Oral 100 ml IV Total 50 ml Output Urine Total 300 ml # Voids 1 General Appearance: Alert, Oriented X3, Cooperative, No acute distress HEENT: Atraumatic, PERRLA Lungs: Clear to auscultation, Normal air movement Cardiovascular: Normal S1, Normal S2 Abdomen: Normal bowel sounds, Soft, No tenderness Musculoskeletal: Normal sensory function, Normal motor function Extremities: No clubbing, No cyanosis Neuro: Normal gait, Normal speech Psych/Mental Status: Mental status NL, Mood NL Medications Current Medications Medications Dose Ordered Sig/Catarino Route Start Time Stop Time Status Last Admin Dose Admin Methylprednisolone Sodium Succinate 40 mg BID IV 06/06/24 22:00 06/07/24 09:24 40 MG Ondansetron HCl 4 mg Q4HP PRN IV 06/06/24 14:00 Enoxaparin Sodium 40 mg DAILY SC 06/07/24 10:00 06/07/24 09:25 40 MG Ceftriaxone Sodium 50 ml @ 100 mls/hr DAILY@09 IV 06/07/24 09:00 06/07/24 09:01 100 MLS/HR Atorvastatin Calcium 40 mg HS PO 06/06/24 22:00 Nitroglycerin 0.4 mg Q5MINP PRN SL 06/06/24 14:15 Acetaminophen 650 mg Q6HP PRN PO 06/06/24 14:30 06/07/24 00:59 650 MG Morphine Sulfate 2 mg Q30MIN PRN IV 06/06/24 14:30 06/07/24 09:58 2 MG Morphine Sulfate 2 mg Q6HPRN PRN IV 06/06/24 19:15 06/07/24 18:15 2 MG Alprazolam 0.5 mg BIDPRN PRN PO 06/06/24 19:30 06/07/24 13:24 0.5 MG Levalbuterol HCl 0.625 mg Q4HR NEB 06/06/24 22:00 06/07/24 13:53 0.625 MG Ipratropium [place] 0.5 mg Q4HR NEB 06/06/24 22:00 06/07/24 13:53 0.5 MG Budesonide 0.5 mg BID NEB 06/07/24 22:00 Laboratory Results Laboratory Tests 06/07/24 05:10 Chemistry Test 06/07/24 05:10 Albumin 4.3 g/dL (3.2-4.8) Calcium Level 10.2 mg/dL (8.7-10.4) Total Protein 7.0 g/dL (5.7-8.2) LFT Test 06/07/24 05:10 Alanine Aminotransferase (ALT) 94 U/L (7-40) H Alkaline Phosphatase 195 U/L (46-116) H Aspartate Amino Transferase (AST) 21 U/L (13-40) Total Bilirubin 0.6 mg/dL (0.2-1.0) Labs and/or images reviewed: Labs reviewed by me, Image(s) reviewed by me Assessment/Plan Assessment/Plan Impression: Acute hypoxic respiratory failure Acute asthma exacerbation Leukocytosis, probable sirs Elevated D-dimer, probably secondary to recent section Obesity Plan: -continue bronchodilators, add Pulmicort, continue Solu-Medrol -long discussion made with the patient regarding her chest x-ray, CT scan, lab work. All questions answered. -titrate off O2 as tolerated -IV hydration -hold patient's Singulair given current -continue IV Rocephin -repeat chest x-ray in a.m. reassess for discharge Total time spent with patient discussing and formulating plan of care: 35 minutes. This medical document was created using an electronic medical record system with [employer] dictation system. Although this document has been carefully reviewed, there may still be some phonetic and typographical errors. These areas are purely typographical due to imperfections of the software programs, and do not reflect any compromise in the patient's medical care. Plan discussed with: Patient, Other (RN) My Orders Orders - OZZIE ALATORRE NP Procedure Category Date Status Time Budesonide PHA 06/07/24 In Process (Inhalation) 22:00 Date of Service: Jun 07, 2024 Billing Provider: OZZIE ALATORRE NP Common Visit Codes: [id number] INP/OBS CARE(HIGH) OZZIE ALATORRE NP Jun 07, 2024 18:38
[2024-06-07] MEDS: SODIUM CHLORIDE 0.9% 1,000 ML IV ONE (18:56)
[2024-06-07] MEDS: BUDESONIDE (INHALATION) 0.5 MG/2 ML NEB NEB SCH (21:31)
[2024-06-08] VITALS (25 sets, daily range): BP systolic 109–146; BP diastolic 5–90; PULSE 84–111; RESP 16–20; TEMP 97.4–99.5; O2SAT 87–100
--- NOTE | 2024-06-08 06:15 | DVH ---
EXAM: XY CHEST XRAY 1 VIEW Indication: hypoxia Technique: Single frontal view of the chest was obtained Comparison: XY CHEST XRAY 1 VIEW on DOS: 06/06/24, CXRP on DOS: 10/29/21, CHEST PORTABLE on DOS: , CHEST PORTABLE on DOS: 08/25/20 FINDINGS: Lines and Tubes: None Lungs: No focal consolidation. Pleura: No effusion. No pneumothorax. Cardiomediastinal contours: Unremarkable Bones: No acute osseous abnormality. IMPRESSION: No acute cardiopulmonary disease.
--- NOTE | 2024-06-08 14:31 | DVHPN2 ---
Subjective Patient continues to report having shortness of breath. States it worsens with ambulation. Reviewed: Care Plan, H&P, Labs, Medications Changes from previous H/P or p: No Changes General: Per HPI Eyes: No Pain, No Vision change, No Conjunctivae inflammation, No Eyelid inflammation, No Other, No Redness ENT: No Ear pain, No Ear discharge, No Nose pain, No Nose discharge, No Nose congestion, No Mouth pain, No Mouth swelling, No Throat pain, No Throat swelling, No Other Cardiovascular: Chest Pain; No Palpitations, No Orthopnea, No Paroxysmal Noc. Dyspnea, No Edema, No Lt Headedness, No Other Respiratory: Cough; No Dry; Shortness of breath; No SOB with excertion, No Wheezing, No Hemoptysis, No Pleuritic Pain, No Sputum, No Other Gastrointestinal: No Nausea, No Vomiting, No Abdominal Pain, No Diarrhea, No Constipation, No Melena, No Hematochezia, No Other Genitourinary: No Dysuria, No Frequency, No Incontinence, No Hematuria, No Retention, No Other Musculoskeletal: No other, No neck pain, No shoulder pain, No arm pain, No back pain, No hand pain, No leg pain, No foot pain Skin: No Rash, No Lesions, No Jaundice, No Bruising, No Other Objective Vitals Vital Signs Date Time Temp Pulse Resp B/P (MAP) Pulse Ox O2 Delivery O2 Flow Rate FiO2 06/08/24 14:20 102 20 97 06/08/24 14:14 Nasal Cannula* 2 28 06/08/24 13:25 127/82 06/08/24 13:00 98.0 98.0 Intake/Output Intake and Output 06/08/24 07:00 Intake Total 1890 ml Output Total 650 ml Balance 1240 ml Intake Oral 1840 ml IV Total 50 ml Output Urine Total 650 ml # Voids 2 General Appearance: Alert, Oriented X3, Cooperative, No acute distress HEENT: Atraumatic, PERRLA Lungs: Clear to auscultation, Normal air movement Cardiovascular: Normal S1, Normal S2 Abdomen: Normal bowel sounds, Soft, No tenderness Musculoskeletal: Normal sensory function, Normal motor function Extremities: No clubbing, No cyanosis Neuro: Normal gait, Normal speech Psych/Mental Status: Mental status NL, Mood NL Medications Current Medications Medications Dose Ordered Sig/Catarino Route Start Time Stop Time Status Last Admin Dose Admin Methylprednisolone Sodium Succinate 40 mg BID IV 06/06/24 22:00 06/08/24 08:03 40 MG Ondansetron HCl 4 mg Q4HP PRN IV 06/06/24 14:00 Enoxaparin Sodium 40 mg DAILY SC 06/07/24 10:00 06/08/24 08:05 40 MG Ceftriaxone Sodium 50 ml @ 100 mls/hr DAILY@09 IV 06/07/24 09:00 06/08/24 08:04 100 MLS/HR Atorvastatin Calcium 40 mg HS PO 06/06/24 22:00 Nitroglycerin 0.4 mg Q5MINP PRN SL 06/06/24 14:15 Acetaminophen 650 mg Q6HP PRN PO 06/06/24 14:30 06/07/24 00:59 650 MG Morphine Sulfate 2 mg Q30MIN PRN IV 06/06/24 14:30 06/08/24 02:50 2 MG Morphine Sulfate 2 mg Q6HPRN PRN IV 06/06/24 19:15 06/08/24 09:26 2 MG Alprazolam 0.5 mg BIDPRN PRN PO 06/06/24 19:30 06/08/24 12:29 0.5 MG Levalbuterol HCl 0.625 mg Q4HR NEB 06/06/24 22:00 06/08/24 14:14 0.625 MG Ipratropium [place] 0.5 mg Q4HR NEB 06/06/24 22:00 06/08/24 14:14 0.5 MG Budesonide 0.5 mg BID NEB 06/07/24 22:00 06/08/24 06:23 0.5 MG Laboratory Results Laboratory Tests 06/07/24 05:10 Labs and/or images reviewed: Labs reviewed by me, Image(s) reviewed by me Assessment/Plan Assessment/Plan Impression: Acute hypoxic respiratory failure Acute asthma exacerbation Leukocytosis, probable sirs Elevated D-dimer, probably secondary to recent section Obesity Plan: Events: Patient now on 2 L nasal cannula. Oxygen saturation did drop to 87% on room air. Patient also clinically reports having dyspnea. -continue bronchodilators, Pulmicort, continue Solu-Medrol -long discussion made with the patient regarding her chest x-ray, CT scan, lab work. All questions answered. -titrate off O2 as tolerated -IV hydration -hold patient's Singulair given current -continue IV Rocephin -continue current plan of care and reassess for discharge in a.m.. Total time spent with patient discussing and formulating plan of care: 35 minutes. This medical document was created using an electronic medical record system with [employer] dictation system. Although this document has been carefully reviewed, there may still be some phonetic and typographical errors. These areas are purely typographical due to imperfections of the software programs, and do not reflect any compromise in the patient's medical care. Plan discussed with: Patient, Other (RN) My Orders Orders - OZZIE ALATORRE NP Procedure Category Date Status Time Communication Order ORDERS 06/07/24 Transmitted 18:30 Chest Xray 1 View XY 06/08/24 Resulted 04:00 Date of Service: Jun 08, 2024 Billing Provider: OZZIE ALATORRE NP Common Visit Codes: [id number] INP/OBS CARE(HIGH) OZZIE ALATORRE NP Jun 08, 2024 14:31
[2024-06-09] VITALS (24 sets, daily range): BP systolic 118–138; BP diastolic 65–82; PULSE 80–107; RESP 16–20; TEMP 97.5–98.7; O2SAT 89–100
--- NOTE | 2024-06-09 15:26 | DVHPN2 ---
Subjective Patient continues to report having shortness of breath. States it worsens with ambulation. Reviewed: Care Plan, H&P, Labs, Medications Changes from previous H/P or p: No Changes General: Per HPI Eyes: No Pain, No Vision change, No Conjunctivae inflammation, No Eyelid inflammation, No Other, No Redness ENT: No Ear pain, No Ear discharge, No Nose pain, No Nose discharge, No Nose congestion, No Mouth pain, No Mouth swelling, No Throat pain, No Throat swelling, No Other Cardiovascular: Chest Pain; No Palpitations, No Orthopnea, No Paroxysmal Noc. Dyspnea, No Edema, No Lt Headedness, No Other Respiratory: Cough; No Dry; Shortness of breath; No SOB with excertion, No Wheezing, No Hemoptysis, No Pleuritic Pain, No Sputum, No Other Gastrointestinal: No Nausea, No Vomiting, No Abdominal Pain, No Diarrhea, No Constipation, No Melena, No Hematochezia, No Other Genitourinary: No Dysuria, No Frequency, No Incontinence, No Hematuria, No Retention, No Other Musculoskeletal: No other, No neck pain, No shoulder pain, No arm pain, No back pain, No hand pain, No leg pain, No foot pain Skin: No Rash, No Lesions, No Jaundice, No Bruising, No Other Objective Vitals Vital Signs Date Time Temp Pulse Resp B/P (MAP) Pulse Ox O2 Delivery O2 Flow Rate FiO2 06/09/24 15:20 65 16 132/65 06/09/24 14:50 98 06/09/24 14:44 Nasal Cannula* 3 32 06/09/24 13:49 98.5 98.5 Intake/Output Intake and Output 06/09/24 07:00 Intake Total 2330 ml Output Total 700 ml Balance 1630 ml Intake Oral 2280 ml IV Total 50 ml Output Urine Total 700 ml # Voids 5 General Appearance: Alert, Oriented X3, Cooperative, No acute distress HEENT: Atraumatic, PERRLA Lungs: Clear to auscultation, Normal air movement Cardiovascular: Normal S1, Normal S2 Abdomen: Normal bowel sounds, Soft, No tenderness Musculoskeletal: Normal sensory function, Normal motor function Extremities: No clubbing, No cyanosis Neuro: Normal gait, Normal speech Psych/Mental Status: Mental status NL, Mood NL Medications Current Medications Medications Dose Ordered Sig/Catarino Route Start Time Stop Time Status Last Admin Dose Admin Methylprednisolone Sodium Succinate 40 mg BID IV 06/06/24 22:00 06/09/24 07:51 40 MG Ondansetron HCl 4 mg Q4HP PRN IV 06/06/24 14:00 Enoxaparin Sodium 40 mg DAILY SC 06/07/24 10:00 06/09/24 07:51 40 MG Ceftriaxone Sodium 50 ml @ 100 mls/hr DAILY@09 IV 06/07/24 09:00 06/09/24 07:51 100 MLS/HR Atorvastatin Calcium 40 mg HS PO 06/06/24 22:00 Nitroglycerin 0.4 mg Q5MINP PRN SL 06/06/24 14:15 Acetaminophen 650 mg Q6HP PRN PO 06/06/24 14:30 06/08/24 15:47 650 MG Morphine Sulfate 2 mg Q30MIN PRN IV 06/06/24 14:30 06/08/24 17:17 2 MG Morphine Sulfate 2 mg Q6HPRN PRN IV 06/06/24 19:15 06/09/24 11:05 2 MG Alprazolam 0.5 mg BIDPRN PRN PO 06/06/24 19:30 06/09/24 09:28 0.5 MG Levalbuterol HCl 0.625 mg Q4HR NEB 06/06/24 22:00 06/09/24 14:44 0.625 MG Ipratropium [place] 0.5 mg Q4HR NEB 06/06/24 22:00 06/09/24 14:44 0.5 MG Budesonide 0.5 mg BID NEB 06/07/24 22:00 06/09/24 07:10 0.5 MG Laboratory Results Laboratory Tests 06/07/24 05:10 Labs and/or images reviewed: Labs reviewed by me, Image(s) reviewed by me Assessment/Plan Assessment/Plan Impression: Acute hypoxic respiratory failure Acute asthma exacerbation Leukocytosis, probable sirs Elevated D-dimer, probably secondary to recent section Obesity Plan: Events: Patient now 1 L oxygen. Patient reports to have dyspnea with ambulation. Heart rate improved.. -continue bronchodilators, Pulmicort, continue Solu-Medrol -long discussion made with the patient regarding her chest x-ray, CT scan, lab work. All questions answered. -titrate off O2 as tolerated -IV hydration -hold patient's Singulair given current -continue IV Rocephin -transfer to Medical/Surgical unit -continue current plan of care and reassess for discharge in a.m.. Total time spent with patient discussing and formulating plan of care: 35 minutes. This medical document was created using an electronic medical record system with [email or web address] dictation system. Although this document has been carefully reviewed, there may still be some phonetic and typographical errors. These areas are purely typographical due to imperfections of the software programs, and do not reflect any compromise in the patient's medical care. Plan discussed with: Patient, Other (RN) My Orders Orders - OZZIE ALATORRE NP Procedure Category Date Status Time Transfer Orders XFER 06/09/24 Verified 15:25 Date of Service: Jun 09, 2024 Billing Provider: OZZIE ALATORRE NP Common Visit Codes: [id number] INP/OBS CARE(HIGH) OZZIE ALATORRE NP Jun 09, 2024 15:26
[2024-06-10] VITALS (12 sets, daily range): BP systolic 101–136; BP diastolic 58–81; PULSE 69–96; RESP 14–20; TEMP 97.5–98.4; O2SAT 93–100
[2024-06-10] MEDS ORDERED: ALBU108A5 IN (12:31)
--- NOTE | 2024-06-10 13:21 | ECG ---
[facility] Test Date: 2024-06-06 Test Time: 14:33:43 Pat Name: ALEX MUHAMMAD Department: ED Room: 0281 B Gender: F Proof Passer: DARCY : 1990 Requested By: CONNIE MENENDEZ Order Number: [id number] Reading MD: Constance Madrid Measurements Intervals [place] Rate: 118 P: 47 RI: 134 QRS: 27 QRSD: 80 T: 30 QT: 297 QTc: 417 Interpretive Statements Sinus tachycardia Electronically Signed On 06-10-2024 22:12:56 PST by Constance Madrid Please click the below link to view image of tracing.
--- NOTE | 2024-06-10 13:44 | DVHDS2 ---
Discharge Summary Date of Admission Jun 06, 2024 at 13:50 Date of Discharge: Jun 10, 2024 Admitting Diagnosis ACUTE ASTHMA EXACERBATION Labs/Diagnostic Data: Laboratory Results Test 06/07/24 13:37 06/07/24 05:10 06/06/24 16:59 06/06/24 11:20 POC Glucose 142 mg/dl (70-106) White Blood Count 11.8 10^3/uL (4.4-10.8) Red Blood Count 3.92 10^6/uL (4.0-5.20) Hemoglobin 12.5 g/dL (12.2-16.2) Hematocrit 37.0 % (36.0-46.0) Mean Corpuscular Volume 94.5 fL (80.0-100.0) Mean Corpuscular Hemoglobin 32.0 pg (28.0-32.0) Mean Corpuscular Hemoglobin Concent 33.8 g/dL (32.0-36.0) Red Cell Distribution Width 13.5 % (11.8-14.3) Platelet Count 493 10^3/uL (140-450) Mean Platelet Volume 6.6 fL (6.9-10.8) Neutrophils (%) (Auto) 92.7 % (37.0-80.0) Lymphocytes (%) (Auto) 4.7 % (10.0-50.0) Monocytes (%) (Auto) 2.4 % (0.0-12.0) Eosinophils (%) (Auto) 0.0 % (0.0-7.0) Basophils (%) (Auto) 0.2 % (0.0-2.0) Neutrophils # (Auto) 11.0 10 ^3/uL (1.6-8.6) Lymphocytes # (Auto) 0.6 10 ^3/uL (0.4-5.4) Monocytes # (Auto) 0.3 10 ^3/uL (0-1.3) Eosinophils # (Auto) 0 10 ^3/uL (0-0.8) Basophils # (Auto) 0 10 ^3/uL (0-0.2) Nucleated Red Blood Cells 0.0 % Sodium Level 140 mmol/L (136-145) Potassium Level 4.1 mmol/L (3.5-5.1) Chloride Level 105 mmol/L (98-107) Carbon Dioxide Level 23 mmol/L (20-31) Anion Gap 12 (5-15) Blood Urea Nitrogen 14 mg/dL (9-23) Creatinine 0.70 mg/dL (0.550-1.02) Glomerular Filtration Rate Calc 117 mL/min (>90) BUN/Creatinine Ratio 20.0 (10.0-20.0) Serum Glucose 126 mg/dL (74-106) Calcium Level 10.2 mg/dL (8.7-10.4) Total Bilirubin 0.6 mg/dL (0.2-1.0) Aspartate Amino Transferase (AST) 21 U/L (13-40) Alanine Aminotransferase (ALT) 94 U/L (7-40) Alkaline Phosphatase 195 U/L (46-116) Total Protein 7.0 g/dL (5.7-8.2) Albumin 4.3 g/dL (3.2-4.8) Troponin I High Sensitivity < 3 ng/L (</=34) Influenza Type A Antigen Negative (Negative) Influenza Type B Antigen Negative (Negative) SARS-CoV-2 Antigen (Rapid) Negative (NEGATIVE) Test 06/06/24 06:58 D-Dimer, Quantitative 1.52 mg/L FEU (0.0-0.49) Hemoglobin A1c 5.4 % A1C (<5.7) Lactic Acid Level 1.6 mmol/L (0.4-2.0) B-Type Natriuretic Peptide 76.02 pg/mL (0-100) Other Laboratory Tests 06/07/24 05:10 Brief Hx & Hospital Course: History of Present Illness Raina Finn is a 33-year-old female with past medical history of anxiety and asthma who presents to the ED for shortness of breath, cough, fever, and chest pain x1 day. Patient reports that her 5-year-old daughter is sick with a cough and fever also has asthma. Patient reports that she started to feel short of breath around 3:00 a.m. this morning. She also reports that she has has been intubated 6 times because of her asthma attacks, her most recent one was in 2014 at [facility]. Patient also reports that she is compliant with her medications and she sees an asthma/computer network specialist including her primary doctor at [facility]. Patient reports that she recently had a 1 week ago. Patient also reports that she had gestational diabetes. Patient denies any chills, headache, lightheadedness, dizziness, nausea, vomiting, diarrhea, and abdominal pain. Course of hospitalization: Patient was treated with bronchodilators, antibiotic therapy, Pulmicort, IV Solu-Medrol. Patient was wheezing resolved. Patient was weaned off of O2. She states that her dyspnea has resolved today, as she was able to ambulate without any difficulties. Patient will be discharged home and continue with current albuterol MDI as well as nebulizer treatments. She will follow up with the discharge Clinic in one week if she can not see her PCP in 1-2 weeks. Physical examination General: Alert and Oriented x3. No acute distress. Well-nourished. Eyes: EOMI. Anicteric. HENT: Moist mucous membranes. Lungs: Clear to auscultation bilaterally. No accessory muscle use. Cardiovascular: Regular rate and rhythm. No murmur. No JVD. Abdomen: Soft, non-tender and non-distended. No palpable masses. Extremities: No edema. Non-tender. Skin: No rashes or lesions. Warm. Neurologic: No focal neurological deficits. CN II-XII grossly intact, but not individually tested. Psychiatric: Cooperative. Appropriate mood and affect. Total time spent with patient discussing and formulating plan of care: 35 minutes. This medical document was created using an electronic medical record system with [employer] dictation system. Although this document has been carefully reviewed, there may still be some phonetic and typographical errors. These areas are purely typographical due to imperfections of the software programs, and do not reflect any compromise in the patient's medical care. Condition at Discharge: Fair Final Diagnosis/Problems List Acute hypoxic respiratory failure Secondary Diagnosis: Acute hypoxic respiratory failure Acute asthma exacerbation Leukocytosis, probable sirs Elevated D-dimer, probably secondary to recent section Obesity Discharge Disposition: Home Discharge Instruct/Medications Diet: Regular Activity: No Restrictions, As Tolerated Follow Up/Referral: PCP in 1-2 weeks Medications: Continue all home medications 36 Discharge Statement: "Patient was advised to return to the ER or call 911 if any headaches, dizziness, shortness of breath, chest pain, abdominal pain, bleeding, fevers, or worsening of medical condition. Patient was counseled about treatment plan, medications, possible side effects, patientverbalized understanding. All questions were answered to the best of my ability. This discharge took greater then 30 minutes in planning, reviewing documentation, counseling the patient, and discussing with other team members." ASSESSMENT ASSESSMENT Assessment Acute hypoxic respiratory failure Date of Service: Jun 10, 2024 Billing Provider: OZZIE ALATORRE NP Common Visit Codes: [id number] DISCH DAY >30min OZZIE ALATORRE NP Jun 10, 2024 13:44
[2024-06-11] MEDS ORDERED: ALBU0.084 NEB (10:03)
== END 2024-06-10 14:47 | disposition home or self-care (01) | DRG 141 ==
LOC: EDBD 06:31 → ER 06:31 → OVERFLOW 13:50 → TELE 15:05 → TELE-WESTW 23:26 → WEST WING 06-10 08:46
PROVIDERS: ATTEND Nurse Practitioner Acute Care
DX: J45.901 Unspecified asthma with (acute) exacerbation (principal); J96.01 Acute respiratory failure with hypoxia; R65.11 Systemic inflammatory response syndrome (SIRS) of non-infectious origin with acute organ dysfunction; O99.53 Diseases of the respiratory system complicating the puerperium; O99.215 Obesity complicating the puerperium; O90.89 Other complications of the puerperium, not elsewhere classified; E87.6 Hypokalemia; F41.9 Anxiety disorder, unspecified; O99.345 Other mental disorders complicating the puerperium; Z88.0 Allergy status to penicillin; Z90.49 Acquired absence of other specified parts of digestive tract; Z82.49 Family history of ischemic heart disease and other diseases of the circulatory system; Z83.3 Family history of diabetes mellitus; Z86.32 Personal history of gestational diabetes; Z68.38 Body mass index [BMI] 38.0-38.9, adult
CPT/HCPCS: 36415; 71045; 71275; 80053; 82962; 83036; 83605; 83880; 84484; 85025; 85379; 87426; 87804; 93005; 93971; 94640; 96365; 96375; G0378; J2405